=== PATIENT | female | born 1995 | race Caucasian/White ===

== ENCOUNTER 2023-10-05 10:31 | Emergency (ER) | payer OTHER, SELFPAY ==
[2023-10-05 10:41] VITALS: BP 157/90; PULSE 83; RESP 18; TEMP 36.6; O2SAT 100; BMI 43.3
--- NOTE | 2023-10-05 10:56 | ED.WOUNDLAC ---
HPI - Wound/Laceration General Chief Complaint: Wound/Laceration Stated Complaint: post op infection appendectomy Time Seen by Provider: 10/05/23 10:41 Source: patient Mode of arrival: ambulatory Limitations: no limitations History of Present Illness ED Provider: Jeremie Chicas PA-C HPI narrative: 27-year-old female, s/p emergent appendectomy POD#9, presents to the ER due to a rash around her incision sites for the past two days. She remained in the hospital for four hours post-surgery without complications, was discharged home, and had a follow-up on 09/30 which was unremarkable. One week ago (POD#1), she experienced severe pain and returned to [facility] ER where her pain management was changed from oxycodone to dilaudid, providing relief. She had a repeat CT scan that was ok. Two days ago, she developed a tender, itchy, burning like rash around her incision sites. She contacted her surgeon, Dr. Katz, who suspected an allergic reaction to the glue. When she told him that there is yellow, thin drainage, he prescribed keflex twice daily. She has taken two doses with no improvement. She reports a low-grade fever this morning. She denies headache, vision changes, chest pain, palpitations, shortness of breath, nausea, vomiting, diarrhea, abdominal pain, back pain, urinary symptoms, chills, and general malaise. Onset (ago): day(s) Location: abdomen Place: home Patient tetanus UTD: Yes Associated symptoms: other (itching, burning) Treatments prior to arrival: other (keflex) Related Data Previous Rx's ?Medication ?Instructions ?Recorded cephalexin 500 mg capsule 500 mg PO Q6H 7 days #28 caps 10/05/23 doxycycline hyclate 100 mg tablet 100 mg PO BID #14 tabs 10/05/23 Allergies Allergy/AdvReac Type Severity Reaction Status Date / Time nifedipine Allergy Rash Verified 10/05/23 10:43 Review of Systems Constitutional: Constitutional: Reports as per HPI Eyes: Eyes: Reports as per HPI ENT: Reports as per HPI Cardiovascular: Cardiovascular: Reports as per HPI Respiratory: Respiratory: Reports as per HPI Gastrointestinal: Gastrointestinal: Reports as per HPI Genitourinary: Genitourinary: Reports as per HPI Musculoskeletal: Musculoskeletal: Reports as per HPI Integumentary/Breasts: Skin/Breast: Reports as per HPI Neurologic: Reports as per HPI Psychiatric: Psychiatric: Reports as per HPI Endocrine: Endocrine: Reports as per HPI Hematologic/Lymphatic: Hematologic/Lymphatic: Reports as per HPI Allergic/Immunologic: Allergic/Immunologic: Reports as per HPI [facility] Social History Social History Advance Directives: No Advance Directives Information Provided: No Do you have a plan to hurt others: No Plan Physical Exam Vital Signs: Vital Signs: Last Vital Signs Temp 98.2 F 10/05/23 12:20 Pulse 73 10/05/23 12:20 Resp 16 10/05/23 12:20 BP 164/100 H 10/05/23 12:20 Pulse Ox 100 10/05/23 12:20 O2 Del Method Room Air 10/05/23 12:20 BMI result Body Mass Index 43.3 Appearance: Alert. Oriented X3. No acute distress. Head: normocephalic, atraumatic. Eyes: Pupils equal, round and reactive to light. ENT: Pharynx normal. No tonsillar swelling or exudate. Neck: Normal inspection. Neck supple. CVS: Normal heart rate and rhythm. Pulses normal. Respiratory: No respiratory distress. Breath sounds normal. Abdomen: yellow colored crusting and drainage around incision site x1 above umbilicus, localized macular erythema, flat margins not sharply demarcated rash of skin surrounding incision sites x3. Warm and tender to palpation, no fluctuatance or induration No edema or blood at incision sites. All incisions are intact. Abdomen is soft, obese, non-tender, with BSx4. Skin: Skin warm and dry. Normal skin color. Normal skin turgor. No rashes. Extremities: No lower extremity edema. No joint swelling. Neuro/psych: Oriented X 3. No motor deficit. No sensory deficit. CN II-XII intact. Normal speech and cognition. Medications Administered Discontinued Medications Generic Name Dose Route Start Last Admin Trade Name Freq PRN Reason Stop Dose Admin Ceftriaxone Sodium 1 gm/ 50 mls @ 100 mls/hr 10/05/23 10:51 10/05/23 11:49 Sodium Chloride IV 10/05/23 11:20 Infused ONCE ONE Infusion Medical Decision Making Medical Decision Making MDM Narrative: 27-year-old female, s/p emergent appendectomy POD#9, presents to the ER due to a redness around her incision sites for the past two days w/ clear yellow drainage. On arrival, the patient is hemodynamically stable other than elevated BP of 157/90, in no acute distress, non-toxic appearing. On examination, the patient is alert and oriented x3. Abdominal exam portrays yellow colored crusting and drainage around incision site x1 above umbilicus, localized macular erythema, flat margins not sharply demarcated rash surrounding incision sites x3. Warm and tender to palpation, no fluctuance or abscess. No edema or blood at incision sites. All incisions are intact. Abdomen is soft, obese, non-tender, with BSx4. Remaining PE is unremarkable. Labs are unremarkable other than PLT of 417. Brief bedside ultrasound did not portray any abdominal cobblestoning or fluid collection which is reassuring that there is no abscess. Signs and symptoms are most consistent with cellulitis. A dose of ceftriaxone sodium IV given to patient in the ER. Plan is to discharge the patient home, prescribed more keflex and instructed to take antibiotics every 6 hours. Doxycycline added for MRSA coverage. May use warm compress, and Benadryl to help with pruritus. Return precautions were discussed, rash borders are outlined with a marker, recommended to follow up with surgeon. Patient has clear understanding and agrees with plan. Differential Diagnosis Differential Diagnoses: The differential diagnosis associated with the presentation includes cellulitis, contact dermatitis, allergic dermatitis, abscess low suspicion of nectrotizing fasciitis, or thrombophlebitis Lab Data MDM Lab Attestation statement: I reviewed the patient's lab results. no leukocytosis, negative lactic acid 10/05/23 11:15 10/05/23 11:15 Labs: Lab Results 10/05/23 Range/Units 11:15 WBC 8.2 (4.8-10.8) X10*3/uL RBC 4.43 (4.20-5.50) X10*6/uL Hgb 12.8 (12.0-16.0) g/dl Hct 38.1 (37.0-47.0) % MCV 86.0 (80.0-98.0) fL MCH 28.9 (27.0-33.0) pg MCHC 33.6 (31.0-35.0) g/dl RDW 12.2 (11.0-16.0) % Plt Count 417 H (160-400) X10*3/uL MPV 8.9 L (9.4-12.3) fL Immature Gran % (Auto) 0.1 (0.0-0.4) % Neut % (Auto) 71.5 (45-73) % Lymph % (Auto) 17.7 L (20-40) % [place] % (Auto) 5.7 (2-11) % Eos % (Auto) 4.6 H (0-4) % Baso % (Auto) 0.4 (0-2) % Lymph # (Auto) 1.5 (1.2-4.9) X10*3/uL [place] # (Auto) 0.5 (0.1-1.2) X10*3/uL Eos # (Auto) 0.4 (0.0-0.4) X10*3/uL Baso # (Auto) 0.0 (0.0-0.2) X10*3/uL Abs Immat Gran (auto) 0.01 (0.00-0.03) X10*3/uL Absolute Neuts (auto) 5.9 (2.0-8.3) x10*3/uL Absolute Nucleated RBC 0.000 (0.0-0.012) X10*3/uL Nucleated RBC % (auto) 0.0 (0.0-0.2) /100WBC Sodium 138 (135-145) mmol/L Potassium 3.9 (3.3-5.1) mmol/L Chloride 104 (96-108) mmol/L Carbon Dioxide 24 (22-29) mmol/L Anion Gap 14 (12-20) BUN 11 (9-16) mg/dL Creatinine 0.73 (0.5-1.4) mg/dL Estim Creat Clear Calc 156.3 Estimated GFR > 60 Random Glucose 86 (60-115) mg/dL Lactic Acid 0.8 (0.5-2.0) mmol/L Calcium 9.8 (8.4-10.2) mg/dL Magnesium 1.8 (1.6-2.6) mg/dL Total Bilirubin 0.3 (0.0-1.0) mg/dL Direct Bilirubin 0.1 (0.0-0.5) mg/dL AST 14 (5-31) U/L ALT 15 (0-31) U/L Alkaline Phosphatase 89 (39-117) U/L Total Protein 7.4 (6.5-8.0) g/dL Albumin 3.9 (3.5-5.0) g/dL Tests considered The following testing was considered but not selected: formal U/S considered as well as CT abd - not indicated today Prescription Management I considered prescription management with: Pain Medication and Antibiotic Critical Care Time Critical Care Time Critical Care Time: No Discharge Plan Discharge Clinical Impression: Cellulitis Qualifiers: Site of cellulitis: trunk Site of cellulitis of trunk: abdominal wall Qualified Code(s): L03.311 - Cellulitis of abdominal wall Patient Disposition: Home, Self-Care Instructions: Cellulitis (DC), Warm Compress or Soak (ED) Additional Instructions: Your lab workup today was reassuring. No evidence of deep infection. Take the prescribed antibiotics as directed, complete the entire course and do not miss any doses. Started doxycycline today Start the Keflex tomorrow morning. Your given IV form of this today. Use warm compresses to the area. Follow-up with your surgeon as needed. Recommend Benadryl as needed for itching. Take 50 mg every 6-8 hours. If you develop new or worsening symptoms call 911 or come back to the ER for further evaluation. Prescriptions: New doxycycline hyclate 100 mg tablet 100 mg PO BID Qty: 14 0RF cephalexin 500 mg capsule 500 mg PO Q6H 7 Days Qty: 28 0RF Discharge Date/Time: 10/05/23 12:23 Print Language: Romanian
[2023-10-05] MEDS: cefTRIAXone sodium 1 GM in 0.9 % Sodium Chloride 50 ML IV (11:06)
[2023-10-05 11:19] LABS: MANUAL DIFF FLAG NO
[2023-10-05 11:20] LABS: Basophils Percent Auto 0.4 % (0-2); Eosinophils Absolute Auto 0.4 X10*3/uL (0.0-0.4); Eosinophils Percent Auto 4.6 % (0-4); Hematocrit 38.1 % (37.0-47.0); Hemoglobin 12.8 g/dl (12.0-16.0); Imm Gran Abs Auto 0.01 X10*3/uL (0.00-0.03); Imm Gran Pct Auto 0.1 % (0.0-0.4); Lymphocytes Absolute Auto 1.5 X10*3/uL (1.2-4.9); Lymphocytes Percent Auto 17.7 % (20-40); Mean Corpuscular HGB Conc 33.6 g/dl (31.0-35.0); Mean Corpuscular Hemoglobin 28.9 pg (27.0-33.0); Mean Platelet Volume 8.9 fL (9.4-12.3); Monocytes Absolute Auto 0.5 X10*3/uL (0.1-1.2); Monocytes Percent Auto 5.7 % (2-11); Neutrophils Absolute Auto 5.9 x10*3/uL (2.0-8.3); Neutrophils Percent Auto 71.5 % (45-73); Platelet Count 417 X10*3/uL (160-400); Red Blood Count 4.43 X10*6/uL (4.20-5.50); Red Cell Distribution Width 12.2 % (11.0-16.0); White Blood Count 8.2 X10*3/uL (4.8-10.8)
[2023-10-05 11:35] LABS: Lactic Acid 0.8 mmol/L (0.5-2.0)
[2023-10-05 12:20] VITALS: BP 164/100; PULSE 73; RESP 16; TEMP 36.8; O2SAT 100
[2023-10-05 12:21] LABS: Alanine Aminotransferase 15 U/L (0-31); Albumin Level 3.9 g/dL (3.5-5.0); Alkaline Phosphatase 89 U/L (39-117); Anion Gap 14 (12-20); Aspartate Amino Transferase 14 U/L (5-31); Bilirubin Direct 0.1 mg/dL (0.0-0.5); Bilirubin Total 0.3 mg/dL (0.0-1.0); Blood Urea Nitrogen 11 mg/dL (9-16); Calcium 9.8 mg/dL (8.4-10.2); Carbon Dioxide 24 mmol/L (22-29); Chloride 104 mmol/L (96-108); Creatinine Clr Calc Pharmacy 156.3; Estimated Glomerular Filt Rate > 60; Glucose Random 86 mg/dL (60-115); Magnesium 1.8 mg/dL (1.6-2.6); Potassium 3.9 mmol/L (3.3-5.1); Sodium 138 mmol/L (135-145); Total Protein 7.4 g/dL (6.5-8.0)
--- NOTE | 2023-10-05 12:21 | PC.NURSE ---
patient cellulitic area marked by
== END 2023-10-05 12:23 | disposition home or self-care (01) ==
PROVIDERS: Physician Assistant; Emergency Provider Emergency Medicine
DX: L03.311 Cellulitis of abdominal wall (principal); Z79.899 Other long term (current) drug therapy
CPT/HCPCS: 36415; 80048; 80076; 83605; 83735; 85025; 96365; 99284; J0696

== ENCOUNTER 2023-11-21 11:29 | Emergency (ER) | payer OTHER, SELFPAY ==
--- NOTE | ~2023-11-21 | XR_ITS ---
EXAMINATION: XR CHEST CLINICAL INFORMATION: Shortness of breath. COMPARISON: None available. TECHNIQUE: 2 views of the chest were obtained. FINDINGS: The heart is normal in size. The lungs are clear. Pleural spaces are clear. No pneumothorax. No acute osseous abnormality. XR/XR chest 2V IMPRESSION: No acute cardiopulmonary disease. Electronically signed by: Tyler Arguelles DO 11/21/2023 02:58 PM EDT RP
--- NOTE | 2023-11-21 11:34 | ED.GENADULT ---
HPI - General Adult General Chief complaint: Arrhythmia/Palpitations Stated complaint: SOB for 1 hour Time Seen by Provider: 11/21/23 11:34 Source: patient and EMS Mode of arrival: EMS Limitations: no limitations History of Present Illness ED Provider: Damaris Jerry PA-C HPI narrative: Patient is a 28 year old assigned female at with no reported medical history presenting to the emergency department today with palpitations and shortness of breath. Patient states that this morning she had 2 episodes of shortness of breath accompanied by palpitations. Patient denies any current dizziness, lightheadedness, abdominal pain, nausea, vomiting, fever, chills, blurry vision, double vision, loss of vision, chest pain, difficulty breathing, shortness of breath, back pain, night sweats, pain with urination, increased urinary frequency, increased urinary urgency, blood in her urine or stool, syncope or a near syncopal episode, recent trauma or falls, bowel incontinence, bladder incontinence, or any other complaints at this time. Relieving factors: none Exacerbating factors: none Treatments prior to arrival: none Related Data Previous Rx's ?Medication ?Instructions ?Recorded cephalexin 500 mg capsule 500 mg PO Q6H 7 days #28 caps 10/05/23 doxycycline hyclate 100 mg tablet 100 mg PO BID #14 tabs 10/05/23 Allergies Allergy/AdvReac Type Severity Reaction Status Date / Time nifedipine Allergy Rash Verified 11/21/23 11:43 Review of Systems Constitutional: Constitutional: Reports no additional constitutional complaints, Denies chills, Denies fever(s) and Denies night sweats Eyes: Eyes: Reports no additional eye complaints, Denies blurry vision, Denies change in vision, Denies diplopia, Denies eye discharge, Denies loss of vision and Denies eye pain ENT: Denies dizziness Cardiovascular: Cardiovascular: Reports no additional cardiovascular complaints, Denies chest pain, Denies lightheadedness, Denies Loss of Consciousness, Reports palpitations (now resolved) and Reports dyspnea (now resolved) Respiratory: Respiratory: Reports no additional respiratory complaints and Reports dyspnea (now resolved) Gastrointestinal: Gastrointestinal: Reports no additional gastrointestinal complaints, Denies abdominal pain, Denies melena, Denies hematochezia, Denies change in bowel habits and Denies change in stool character Genitourinary: Genitourinary: Denies hematuria, Denies urinary frequency, Denies dysuria, Denies urinary incontinence, Denies urinary hesitancy and Denies urinary urgency Musculoskeletal: Musculoskeletal: Reports no additional musculoskeletal complaints, Denies numbness and Denies tingling Neurologic: Denies dizziness, Denies loss of vision, Denies numbness and Denies tingling Psychiatric: Psychiatric: Reports no additional psychiatric complaints Endocrine: Endocrine: Reports no additional endocrine complaints and Reports palpitations (now resolved) Hematologic/Lymphatic: Hematologic/Lymphatic: Reports no additional hematologic/lymphatic complaints Allergic/Immunologic: Allergic/Immunologic: Reports no additional allergic/immunologic complaints [facility] Past Medical History Attestation statement: The following information was validated with the patient. Source: old records reviewed and nursing notes reviewed Social History Social History Smoked in Last 30 Days: No Use of substances other than those prescribed or required for medical reasons: No Advance Directives: No Advance Directives Information Provided: No Do you have a plan to hurt others: No Plan Physical Exam ED Vital Signs: Vital Signs - 24 hr 11/21/23 11:42 11/21/23 13:11 Temperature 97.3 F 97.3 F Pulse Rate 75 75 Respiratory Rate 16 16 Blood Pressure 157/94 H 157/94 H Pulse Oximetry 100 100 Oxygen Delivery Method Room Air Room Air BMI result Body Mass Index 42.3 Const General: cooperative, no acute distress, alert and awake Nutritional Appearance: well nourished Orientation/consciousness: patient oriented x3 Limitations: no limitations HENMT Head: Yes normal to inspection and Yes atraumatic Ears: hearing grossly normal bilaterally and external ears normal General nose exam: Normal external nose present, no nasal discharge noted and no epistaxis Face and sinus: Yes normal facial exam, No abrasion and No laceration Mouth: Normal oral and palatal mucosa present, no drooling and no muffled voice Eyes General: appearance normal, both eyes and all related structures Periorbital: periorbital findings normal Eyelids: Yes eyelids normal Conjunctivae: conjunctivae normal Pupils: Equal, round and reactive pupils present EOM: EOMs intact bilaterally Neck Neck: Yes normal visual inspection, Yes full ROM and Yes no lymphadenopathy Chest Chest palpation & inspection: normal inspection of the chest Resp Effort & Inspection: normal respiratory effort and able to speak in complete sentences GI Inspection: Yes normal to inspection Neuro General: patient oriented x3 and moves all extremities Cranial nerves: Yes Equal, round and reactive pupils present Cognition (Neuro): normal cognition Extrem General: Yes normal to inspection, Yes full ROM and Yes capillary refill normal Psych Appearance: grossly normal Mental Status: mental status grossly normal Affect: normal affect Attitude: cooperative Thought process: Normal thought process present Thought content: Normal thought content present Insight: Good insight present (Psych) Medical Decision Making Medical Decision Making [facility] Narrative: Patient is a 28 year old assigned female at with no reported medical history presenting to the emergency department today with 2 episodes of shortness of breath and palpitations. Patient's physical exam was unremarkable. Patient's blood work was unremarkable. Patient's urine showed no acute process. Patient's EKG was unremarkable. Patient's chest x-ray showed no acute process. I explained my physical exam findings as well as all test results to the patient. I answered all questions asked by the patient. I stressed the importance of the patient taking her medication as directed (either prescribed or as the over the counter packaging recommends). I stressed the importance of the patient following up with her primary care provider and if her symptoms persist, a inspector open die. I stressed the importance of the patient returning to the emergency department immediately if her symptoms were to worsen or if she were to develop any dizziness, shortness of breath, difficulty breathing, chest pain, blurry vision, loss of vision, nausea, vomiting, abdominal pain, fever, chills, back pain, or any other complaints. Patient verbalized agreement and understanding with this treatment plan and discharge. Differential Diagnosis Differential Diagnoses: The differential diagnosis associated with the presentation includes Atypical chest pain Palpations Anxiety POTS STEMI NSTEMI Admission/Observation Consideration of admission/observation: Escalation of care including admission/observation considered Patient would have been admitted to the hospital had her work up had any findings where hospital admission was appropriate and her clinical presentation warranted hospital admission. Lab Data [facility] Lab Attestation statement: I reviewed the patient's lab results. My interpretation of these results are in the [facility] Rationale portion of this note. 11/21/23 12:05 11/21/23 12:05 Labs: Lab Results 11/21/23 11/21/23 11/21/23 Range/Units 11:43 12:05 12:07 WBC 6.1 (4.8-10.8) X10*3/uL RBC 4.37 (4.20-5.50) X10*6/uL Hgb 12.6 (12.0-16.0) g/dl Hct 38.2 (37.0-47.0) % MCV 87.4 (80.0-98.0) fL MCH 28.8 (27.0-33.0) pg MCHC 33.0 (31.0-35.0) g/dl RDW 12.1 (11.0-16.0) % Plt Count 408 H (160-400) X10*3/uL MPV 9.2 L (9.4-12.3) fL Immature Gran % (Auto) 0.2 (0.0-0.4) % Neut % (Auto) 57.2 (45-73) % Lymph % (Auto) 30.0 (20-40) % [place] % (Auto) 7.2 (2-11) % Eos % (Auto) 4.6 H (0-4) % Baso % (Auto) 0.8 (0-2) % Lymph # (Auto) 1.8 (1.2-4.9) X10*3/uL [place] # (Auto) 0.4 (0.1-1.2) X10*3/uL Eos # (Auto) 0.3 (0.0-0.4) X10*3/uL Baso # (Auto) 0.1 (0.0-0.2) X10*3/uL Abs Immat Gran (auto) 0.01 (0.00-0.03) X10*3/uL Absolute Neuts (auto) 3.5 (2.0-8.3) x10*3/uL Absolute Nucleated RBC 0.000 (0.0-0.012) X10*3/uL Nucleated RBC % (auto) 0.0 (0.0-0.2) /100WBC PT 11.5 (11.1-13.3) SEC INR 0.9 (0.9-1.1) APTT 29.2 (26.0-36.8) SEC D-Dimer High Sensitivty < 150 NG/ML Sodium 138 (135-145) mmol/L Potassium 4.1 (3.3-5.1) mmol/L Chloride 108 (96-108) mmol/L Carbon Dioxide 22 (22-29) mmol/L Anion Gap 12 (12-20) BUN 11 (9-16) mg/dL Creatinine 0.73 (0.5-1.4) mg/dL Estim Creat Clear Calc 152.8 Estimated GFR > 60 POC Glucose 70 (60-115) mg/dL Random Glucose 75 (60-115) mg/dL Calcium 8.9 D (8.4-10.2) mg/dL Magnesium 1.9 (1.6-2.6) mg/dL Total Bilirubin 0.2 (0.0-1.0) mg/dL AST 19 (5-31) U/L ALT 17 (0-31) U/L Alkaline Phosphatase 94 (39-117) U/L Troponin I High Sens < 2.7 (<3.5-17.0) ng/L Total Protein 7.3 (6.5-8.0) g/dL Albumin 3.8 (3.5-5.0) g/dL Beta HCG, Quant < 2 mIU/mL Urine Color Yellow Urine Appearance Cloudy Urine pH 6.5 (5.0-9.0) Ur Specific [place] 1.015 (1.005-1.025) Urine Protein Negative (Neg-Trace) mg/dL Urine Glucose (UA) Negative (Negative) mg/dL Urine Ketones Trace (Negative) mg/dL Urine Blood Small (1+) H (Negative) Urine Nitrite Negative (Negative) Ur Leukocyte Esterase Negative (Negative) Urine RBC 0-2 (0-2) /HPF Urine WBC 0-5 (0-5) /HPF Ur Squamous Epith Cells 6-10 (0-2) /HPF Urine Bacteria None Seen (None Seen) Hyaline Casts 0-2 (0-2) /LPF Influenza Type A (PCR) NEGATIVE (Negative) Influenza Type B (PCR) NEGATIVE (Negative) RSV RNA Qual (PCR) NEGATIVE (Negative) SARS-CoV-2 RNA (RT-PCR) NEGATIVE (Negative) Independent Interpretation I performed an independent interpretation of an: EKG and Plain X-Ray Interpretation: My interpretation is in agreement with the radiologist's impression of this imaging study. EXAMINATION: XR CHEST CLINICAL INFORMATION: Shortness of breath. COMPARISON: None available. TECHNIQUE: 2 views of the chest were obtained. FINDINGS: The heart is normal in size. The lungs are clear. Pleural spaces are clear. No pneumothorax. No acute osseous abnormality. XR/XR chest 2V IMPRESSION: No acute cardiopulmonary disease. Electronically signed by: Tyler Arguelles DO 11/21/2023 02:58 PM EDT RP Dictated By: Tyler Arguelles Jr, DO Signed By: Electronically signed by Tyler Arguelles Jr, DO 11/21/23 1458 Vent. Rate: 076 BPM Atrial Rate: 076 BPM P-R Int: 162 ms QRS Dur: 084 ms QT Int: 396 ms P-R-T Axes: 035 007 104 degrees QTc Int: 445 ms Normal sinus rhythm T wave abnormality, consider lateral ischemia Abnormal ECG No previous ECGs available Referred By: Damaris Jerry Electronically Signed By:NICOLAS GREENFIELD Dictated By: Nicolas Freitas DO Signed By: Electronically signed by Nicolas Freitas DO 11/21/23 6069 Radiology Impression Discussion of test interpretation with radiology: I have reviewed the radiologist's reading. Discharge Plan Discharge Clinical Impression: Palpitations Patient Disposition: Home, Self-Care Instructions: Heart Palpitations (DC) Additional Instructions: Follow up with your primary care provider and if your symptoms continue - follow up with a inspector open die. Return to the emergency department immediately if your symptoms worsen or if you develop any dizziness, shortness of breath, difficulty breathing, chest pain, blurry vision, loss of vision, nausea, vomiting, abdominal pain, fever, chills, back pain, or any other complaints. Prescriptions: No Action doxycycline hyclate 100 mg tablet 100 mg PO BID Qty: 14 0RF cephalexin 500 mg capsule 500 mg PO Q6H 7 Days Qty: 28 0RF Referrals: [facility] Cardiovascular Specialists [Provider Group] (Call to establish and follow up with a inspector open die if the symptoms were to persist. ) [facility] Family Medicine [Provider Group] (Call to establish and follow up with a primary care provider. If you already have a primary care provider, please follow up with them.) [facility] Primary CareMaría Elena [Provider Group] (Call to establish and follow up with a primary care provider. If you already have a primary care provider, please follow up with them.) [facility] Primary Care,Marcus [Provider Group] (Call to establish and follow up with a primary care provider. If you already have a primary care provider, please follow up with them.) Interventions: ED Discharge Assessment Last Done: 11/21/23 13:11 Discharge Date/Time: 11/21/23 13:12 Print Language: Uruguayan
--- NOTE | 2023-11-21 11:35 | ECG_ITS ---
Test Reason : sob Blood Pressure : / mmHG Vent. Rate : 076 BPM Atrial Rate : 076 BPM P-R Int : 162 ms QRS Dur : 084 ms QT Int : 396 ms P-R-T Axes : 035 007 104 degrees QTc Int : 445 ms Normal sinus rhythm T wave abnormality, consider lateral ischemia Abnormal ECG No previous ECGs available Referred By: Damaris Jerry Electronically Signed By:NICOLAS GREENFIELD
[2023-11-21 11:37] VITALS: BP 119/89; PULSE 96; O2SAT 100
[2023-11-21 11:42] VITALS: BP 157/94; PULSE 75; RESP 16; TEMP 36.3; O2SAT 100; BMI 42.3
--- NOTE | 2023-11-21 11:45 | PC.NURSE ---
pt MIKE from home - per pt she was watching tv with her kids when she started feeling like her heart was pounding she felt it through her whole body pt reports she started feeling SOB with this and felt foggy . pt reports hx of HTN and previously being on Labetalol but she was taken off the med at her 6 week post appointment and she does not know why
[2023-11-21 11:47] LABS: Glucose, Whole Blood 70 mg/dL (60-115)
[2023-11-21 12:13] LABS: MANUAL DIFF FLAG NO
[2023-11-21 12:15] LABS: Basophils Absolute Auto 0.1 X10*3/uL (0.0-0.2); Basophils Percent Auto 0.8 % (0-2); Eosinophils Absolute Auto 0.3 X10*3/uL (0.0-0.4); Eosinophils Percent Auto 4.6 % (0-4); Hematocrit 38.2 % (37.0-47.0); Hemoglobin 12.6 g/dl (12.0-16.0); Imm Gran Abs Auto 0.01 X10*3/uL (0.00-0.03); Imm Gran Pct Auto 0.2 % (0.0-0.4); Lymphocytes Absolute Auto 1.8 X10*3/uL (1.2-4.9); Mean Corpuscular Hemoglobin 28.8 pg (27.0-33.0); Mean Corpuscular Volume 87.4 fL (80.0-98.0); Mean Platelet Volume 9.2 fL (9.4-12.3); Monocytes Absolute Auto 0.4 X10*3/uL (0.1-1.2); Monocytes Percent Auto 7.2 % (2-11); Neutrophils Absolute Auto 3.5 x10*3/uL (2.0-8.3); Neutrophils Percent Auto 57.2 % (45-73); Platelet Count 408 X10*3/uL (160-400); Red Blood Count 4.37 X10*6/uL (4.20-5.50); Red Cell Distribution Width 12.1 % (11.0-16.0); White Blood Count 6.1 X10*3/uL (4.8-10.8)
[2023-11-21 12:16] LABS: Appearance Urine Cloudy; Color Urine Yellow; Glucose Urine UA Negative (Negative); Leukocyte Esterase Urine Negative (Negative); Nitrite Urine Negative (Negative); PH 6.5 (5.0-9.0); Specific Gravity - Urine 1.015 (1.005-1.025); UMIC TRIGGER UACC YES; Urine Blood Small (1+) (Negative); Urine Ketones Trace mg/dL (Negative); Urine Protein Negative (Neg-Trace)
[2023-11-21 12:26] LABS: INTERNATIONAL NORM RATIO 0.9 (0.9-1.1); Prothrombin Time 11.5 SEC (11.1-13.3)
[2023-11-21 12:26] LABS: Bacteria Urine None Seen (None Seen); Hyaline Casts Urine 0-2 /LPF (0-2); RBC Urine 0-2 /HPF (0-2); WBC Urine 0-5 /HPF (0-5)
[2023-11-21 12:28] LABS: Partial Thromboplastin Time 29.2 SEC (26.0-36.8)
[2023-11-21 12:35] LABS: D Dimer High Sensitivity < 150 NG/ML
[2023-11-21 12:37] LABS: Alanine Aminotransferase 17 U/L (0-31); Albumin Level 3.8 g/dL (3.5-5.0); Alkaline Phosphatase 94 U/L (39-117); Anion Gap 12 (12-20); Aspartate Amino Transferase 19 U/L (5-31); Bilirubin Total 0.2 mg/dL (0.0-1.0); Blood Urea Nitrogen 11 mg/dL (9-16); Calcium 8.9 mg/dL (8.4-10.2); Carbon Dioxide 22 mmol/L (22-29); Chloride 108 mmol/L (96-108); Creatinine Clr Calc Pharmacy 152.8; Estimated Glomerular Filt Rate > 60; Glucose Random 75 mg/dL (60-115); HCG Quantitative < 2 mIU/mL; Magnesium 1.9 mg/dL (1.6-2.6); Potassium 4.1 mmol/L (3.3-5.1); Sodium 138 mmol/L (135-145); Total Protein 7.3 g/dL (6.5-8.0); Troponin-I High Sensitivity < 2.7 ng/L (<3.5-17.0)
[2023-11-21 13:06] LABS: Influenza A PCR NEGATIVE (Negative); Influenza B PCR NEGATIVE (Negative); Resp Syncy Virus RNA Qual PCR NEGATIVE (Negative); SARS COV2 PCR INHOUSE NEGATIVE (Negative)
[2023-11-21 13:11] VITALS: BP 157/94; PULSE 75; RESP 16; TEMP 36.3; O2SAT 100
== END 2023-11-21 13:12 | disposition home or self-care (01) ==
PROVIDERS: Physician Assistant Medical; Emergency Provider Emergency Medicine Emergency Medical Services
DX: R00.2 Palpitations (principal); R06.02 Shortness of breath; Z03.818 Encounter for observation for suspected exposure to other biological agents ruled out
CPT/HCPCS: 0241U; 36415; 71046; 80053; 81001; 82947; 83735; 84484; 84702; 85025; 85379; 85610; 85730; 93005; 99283; 99284

== ENCOUNTER 2024-06-07 09:14 | Emergency (ER) | payer OTHER, SELFPAY ==
--- NOTE | 2024-06-07 09:17 | ECG_ITS ---
Test Reason : cp Blood Pressure : */* mmHG Vent. Rate : 96 BPM Atrial Rate : 96 BPM P-R Int : 158 ms QRS Dur : 82 ms QT Int : 336 ms P-R-T Axes : 36 3 113 degrees QTcB Int : 424 ms Normal sinus rhythm ST & T wave abnormality, consider lateral ischemia Abnormal ECG When compared with ECG of 21-Nov-2023 12:10, No significant change was found Referred By: Holli Martin Electronically Signed By: AAKASH QUESADA MD
[2024-06-07 10:16] VITALS: BP 139/82; PULSE 78; RESP 16; TEMP 36.6; O2SAT 100; BMI 42.6
== END 2024-06-07 13:25 | disposition left against medical advice (07) ==
PROVIDERS: Emergency Provider Emergency Medicine Emergency Medical Services
DX: R07.89 Other chest pain (principal); R06.02 Shortness of breath
CPT/HCPCS: 93005; 99281; 99283

== ENCOUNTER → 2024-06-07 09:17 | Outpatient (BNV) | payer OTHER, SELFPAY | PROVIDERS: Visit Provider Internal Medicine Cardiovascular Disease | DX: R94.31 Abnormal electrocardiogram [ECG] [EKG] (principal); R07.9 Chest pain, unspecified | CPT/HCPCS: 93010 ==

== ENCOUNTER 2025-01-11 11:13 | Emergency (ER) | payer OTHER, SELFPAY ==
--- NOTE | ~2025-01-11 | XR_ITS ---
EXAMINATION: XR FOOT, RIGHT CLINICAL INFORMATION: right big toe injury. fracture? COMPARISON: None available. TECHNIQUE: AP, lateral, and oblique views of the right foot. FINDINGS: There is a small plantar calcaneal spur. No degenerative changes are noted. No fracture lines are evident. There is no joint diastases or malalignment. XR/XR foot RT min 3V IMPRESSION: Unremarkable right foot x-ray Electronically signed by: Gabe Lucero MD 01/11/2025 11:47 AM EDT
[2025-01-11 11:16] VITALS: PULSE 59; RESP 18; TEMP 36.8; O2SAT 100; BMI 44.4
[2025-01-11 11:21] VITALS: BP 140/82
--- NOTE | 2025-01-11 11:22 | ED.GENADULT ---
HPI - General Adult General Chief complaint: Extremity Injury, Lower Stated complaint: High Blood Pressure Time Seen by Provider: 01/11/25 11:54 Source: patient Mode of arrival: ambulatory Limitations: no limitations History of Present Illness ED Provider: Papi Yañez HPI narrative: 29 yold female presents to the ED for right pinky toe pain since Friday. Patient states this past Friday she mig tig welder her right pinky toe on a door which caused nail avulsion. Patient states than she went to urgent care and they glued the nail back. patient states slight redness around toe. patient states she never had xray. Related Data Previous Rx's ?Medication ?Instructions ?Recorded cephalexin 500 mg capsule 500 mg PO Q6H 7 days #28 caps 10/05/23 doxycycline hyclate 100 mg tablet 100 mg PO BID #14 tabs 10/05/23 cephalexin 500 mg capsule 500 mg PO QID 7 days #28 caps 01/11/25 naproxen 500 mg tablet 500 mg PO BID PRN pain #14 tabs 01/11/25 Allergies Allergy/AdvReac Type Severity Reaction Status Date / Time nifedipine Allergy Rash Verified 01/11/25 11:17 Review of Systems Review of Systems: right pinky toe Yes all other systems are reviewed and are negative [facility] Social History Social History Advance Directives: No Advance Directives Information Provided: No Do you have a plan to hurt others: No Plan Physical Exam ED Vital Signs: Vital Signs - 24 hr 01/11/25 11:16 01/11/25 11:21 Temperature 98.2 F Pulse Rate 59 Respiratory Rate 18 Blood Pressure 140/82 H Pulse Oximetry 100 Oxygen Delivery Method Room Air BMI result Body Mass Index 44.4 Const General: cooperative, healthy appearing, comfortable, no acute distress, well developed, alert, awake and Physically active Orientation/consciousness: patient oriented x3 HENMT Head: Yes normal to inspection, Yes No palpable skull fracture present, Yes normocephalic and Yes atraumatic Eyes General: appearance normal, both eyes and all related structures Neck Neck: Yes normal visual inspection, Yes full ROM, Yes no lymphadenopathy, Yes no meningeal signs, Yes trachea midline, Yes supple, No anterior neck swelling and No tender Chest Chest palpation & inspection: normal inspection of the chest and normal palpation of entire chest wall Resp Effort & Inspection: normal respiratory effort and able to speak in complete sentences Auscultation: clear to auscultation bilaterally Cardio Jugular venous distension: no JVD Heart sounds: S1 normal heart sound present and S2 normal heart sound present GI Inspection: Yes normal to inspection Palpation (GI): Soft to palpation, not firm, nontender, no guarding and not rigid General: Yes no CVA tenderness Back/Spine/Pelvis Back: no CVA tenderness and No back tenderness Skin General skin exam: no rashes or lesions noted, elasticity normal and turgor normal Neuro General: patient oriented x3, gait normal, tone normal, moves all extremities, Normal light touch and pain sensation, no meningeal signs, no focal motor deficits and CN's II-XI intact bilaterally Extrem General: Yes normal to inspection, Yes full ROM and Yes capillary refill normal Ankle/foot/toe images:  1. positive for slight erythema. negative for pus discharge, foul odor, or bluish/blackness. rest of extremity is normal. motor, neuro, and vascular exam is intact. 2. partial nail avulsion that is glued by urgent care. dried blood. rest of extremity is normal. motor, neuro, and vascular exam is intact. Psych Appearance: grossly normal, well kempt and not disheveled Course Course Course Narrative: RmE: 29 yold female presents to the ED for right pinky toe pain since friday. Patient state nail was coming off and was glued back by urgent care. Patient states still painful and oozing blood. Xrays ordered. Medical Decision Making Medical Decision Making MDM Narrative: 29 yold female presents to the ED for right pinky toe pain after hitting hitoe agaisnt door with partial nail avulsion on Friday. patient went to an urgent care that glued the nail down. patient states slight oozing. Patient states also mild redness around toe. Xrray of foot negative for fracutre. mild erythema around toe. no pus drainage or foul odor. no fever or chills. Patient will be discharged with antbiotics and follow up with finger waver. no need for nail avulsion removal. Not suspecting osteomyelitits, arterial occlussion, compartment syndrome, lymphangitits, necrotizing fascitits, or any other life threatening etiology. Differential Diagnosis Differential Diagnoses: The differential diagnosis associated with the presentation includes (fracture, cellulits, sprain) Admission/Observation Consideration of admission/observation: Escalation of care including admission/observation considered Independent Interpretation I performed an independent interpretation of an: Plain X-Ray Radiology Impression Discussion of test interpretation with radiology: I have reviewed the radiologist's reading. Independent Historian Clinical information obtained from an independent historian. History obtained from or confirmed by: Other (patient) Prescription Management I considered prescription management with: Pain Medication and Antibiotic Discharge Plan Discharge Clinical Impression: Contusion of fifth toe, Acute cellulitis, Nail avulsion of toe Patient Disposition: Home, Self-Care Instructions: Cellulitis (ED), Contusion in Adults (ED), Nail Avulsion (ED) Additional Instructions: You will need follow-up with finger waver or primary care provider. Return to the ED immediately for any swelling, redness, pus discharge, foul odor, fever, chills, or any other concerning symptoms. X-ray negative for fracture. Prescriptions: New cephalexin 500 mg capsule 500 mg PO QID 7 Days Qty: 28 0RF naproxen 500 mg tablet 500 mg PO BID PRN (Reason: pain) Qty: 14 0RF No Action doxycycline hyclate 100 mg tablet 100 mg PO BID Qty: 14 0RF cephalexin 500 mg capsule 500 mg PO Q6H 7 Days Qty: 28 0RF Referrals: [facility] [place] Group, Podiatry] - 2 days Referral Note: Partial nail avulsion, contusion, cellulitis Clinical Impression: Contusion of fifth toe; Acute cellulitis; Nail avulsion of toe Stand Alone Forms: Work/School Release Interventions: ED Discharge Assessment Last Done: 01/11/25 12:54 Discharge Date/Time: 01/11/25 13:00 Print Language: Anguillan
[2025-01-11 12:54] VITALS: BP 140/82; PULSE 59; RESP 16; TEMP 36.9; O2SAT 98
--- OUTSIDE RECORDS SUMMARY | 2025-01-11 16:20 | XMS_ITS | Clinical Summary ---
Author Organization Patient Business Ser [facility] Address [address] [place] [address] Care Team Providers Care Director Behavioral Health Name Role Phone Melissa Sarabia MD Primary Care Prov ider Allergies Active Allergy Reactions Criticality Noted Date Comments Nifedipine 12/31/2022 Other Reaction(s): Flushing, feeling of warmth Face flushed, red hands and feet- tingling of extremities Medications metoprolol succinate (TOPROL-XL) 50 mg 24 hr tablet Take 1 tablet (50 mg total) by mouth 1 (one) time each day. Do not crush or chew. 90 each 3 09/21/2024 Active Active Problems Problem Noted Date Diagnosed Date NSVT (nonsustained ventricul ar tachycardia) ([facility] V24, [facility] V28) 09/21/2024 Shortness of breath 09/21/2024 Abnormal Holter exam 06/30/2024 Overview (06/30/2024): VENTRICULAR TACHYCARDIA Morbid obesity with BMI of 4 0.0-44.9, adult ([facility] V24, [facility] V28) 03/02/2024 Vitamin D insufficiency 11/27/2023 Chronic hypertension in 07/02/2022 Overview (03/02/2024): Baseline (<20 weeks) CBC, AST, ALT, creatinine labs and P/C ratio - 07/02/2022 normal protein cr ratio 0.05 Start ASA 162 mg at 12 weeks until delivery for pre-eclampsia prevention - taking Level 2 anatomy US - normal Q 4 week growth US starting at 28 weeks - ordered Weekly NST with BP and urine protein dip at 32 weeks Twice weekly testing at 36 weeks Start meds for SBP> 160 or DBP> 110 Deliver 38-39 weeks on no meds Deliver 37-39 weeks on meds Last Assessment & Plan: BP elevated x2 today. Patient asymptomatic for preeclampsia but generally does not feel well. PIH labs ordered. Continue ASA> RTO tomorrow for repeat BP check. Discussed if BP persistently elevated will need to start medications and plan for 37 week IOL. Continue twice weekly NSTs until delivery. NST reactive today. Growth US scheduled 12/19/22. Herpes simplex vulvovaginitis 10/30/2021 Overview (03/02/2024): Last Assessment & Plan: Rx given for Valtrex to start now given will deliver earlier than 40 weeks Muscle hypertonicity 06/15/2020 Overview (03/02/2024): Last Assessment & Plan: Performed pelvic OMT due to hypertonicity of adductor muscles. Instructed patient on stretching techniques. Gallstones 03/09/2020 Overview (03/02/2024): S/p lap renetta 03/16/20 Last Assessment & Plan: Symptoms resolved with lap renetta, feeling well today. Childhood asthma 02/15/2020 Other constipation 02/15/2020 Overview (03/02/2024): Last Assessment & Plan: Encouraged increased PO intake and high fiber diet. Rx for colace given. Maternal varicella, non-immune 02/11/2020 Overview (03/02/2024): Vaccinate Last Assessment & Plan: Vaccinate Encounters Date Type Department Care Team Description 10/26/2024 Telephone Adult Medicine [address] [phone] Melissa Sarabia MD from Last 3 Months Immunizations Immunization Administration Dates Next Due Influenza Quadravalent, MDCK , 0.5ml, preservative free (Flucelvax) 6mo and older 01/26/2021,12/22/2019 Influenza trivalent, 0.5mL, preservative free (Fluarix; FluLaval; Fluzone) ages 6mo and older (Afluria) 3 years and older 12/27/2017,03/27/2016,01/13/2015,2013,12/16/2011 Influenza, Unspecified 12/21/2019 Tdap Tetanus diptheria acell ular pertussis (Boostrix; Adacel) 7yo and older 10/22/2022,06/15/2020,07/05/2019,2015,12/31/2015 Varicella live (Varivax) 12m o and older 08/19/2020 Surgical History Surgery Date Site/Laterality Comments OTHER SURGICAL HISTORY PROCEDURE: HISTORICAL D&C; COMMENT: x 2 CHOLECYSTECTOMY 03/16/2020 PROCEDURE: LAPAROSCOPIC CHOLECYSTECT WISDOM TOOTH EXTRACTION 2017 PROCEDURE: HISTORICAL WISDOM TEETH EXTRACTION; COMMENT: all 4 removed Medical History Medical History Date Comments Skin lesions 07/19/2015 DX:Skin lesions; COMMENT: ulcerative, 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 Vaginal discharge 08/07/2022 DX:Vaginal dis charge Hyperemesis gravidarum 05/24/2022 DX:Hypere mesis gravidarum; COMMENT: 06/12- B6 QID, [facility] at [facility] Added Phenergan suppositories today Zofran PRN Family History Medical History Relation Name Comments No Known Problems Father no contact , drug user Diabetes Maternal Grandfather lost to p half of rt foot, in sleep CABG Maternal Grandmother Hypertension Mother asthma, depress ion Lung cancer Paternal Grandfather Glaucoma Paternal Grandmother Drug abuse Sister 1 heroin overdose Other: Other Sister 2 scoliosis No Known Problems Son 1 No Known Problems Son 2 No Known Problems Son 3 No Known Problems Son 4 Breast cancer Neg Hx Cervical cancer Neg Hx Ovarian cancer Neg Hx Uterine cancer Neg Hx Relation Name Status Comments Father Alive Maternal Grandfather Maternal Grandmother Alive Mother Alive Paternal Grandfather Alive Paternal Grandmother Alive Sister 1 Sister 2 Alive Son 1 Alive Son 2 Alive Son 3 Alive Son 4 Alive Social History Tobacco Use Types Packs/Day Years Used Date Smoking Tobacco: Former Cigarettes Q uit: 05/16/2011 Smokeless Tobacco: Never Tobacco Cessation:Counseling Given: Not Answered Alcohol Use Standard Drinks/Week Comments No 0 (1 standard drink = 0.6 oz pur e alcohol) Housing Instability Answer Date Recorde d Are you worried that in the next 2 months you may not have stable housing? No 06/10/2024 Food Access & Nutrition Answer Date Rec orded Do you have access to a vari ety of food including fruits and vegetables? Yes 06/10/2024 Access to Healthcare Answer Date Record ed Within the last 3 months, ho w many times did you visit the emergency department for your medical care? 1 06/10/2024 Health Literacy Answer Date Recorded How often do you need to hav e someone help you when you read instructions, pamphlets, or other written material from your doctor or pharmacy? Never 06/10/2024 Caregiver: How often do you need to have someone help you when you read instructions, pamphlets, or other written material from your doctor or pharmacy? Not on file 06/10/2024 Financial Risk Answer Date Recorded How hard is it for you to pa y for the very basics like food, housing, medical care, and air conditioning / heating? Not very hard 06/10/2024 Transportation Answer Date Recorded Has the lack of transportati on kept you from meetings, work, or from getting things needed for daily living? No Has the lack of transportati on kept you from medical appointments or from getting medications? No 06/10/2024 Social Isolation Answer Date Recorded How often do you feel lonely or isolated from th ose around you? Never 06/10/2024 Food Risk Answer Date Recorded Within the past 12 months we worried whether our food would run out before we got money to buy more. Never true 06/10/2024 Within the past 12 months th e food we bought just didn't last and we didn't have money to get more. Never true 06/10/2024 Dependent Care Answer Date Recorded Do you need help finding or paying for care for your loved ones. For example, child adolescent psychiatrist or elderly care for an older adult? No 06/10/2024 Education Answer Date Recorded Do you think completing more education or training, like finishing a GED, going to college, or learning a trade, would be helpful for you? No 06/10/2024 Employment and Income Answer Date Recor ded During the last four weeks, have you been actively looking for work? No 06/10/2024 Living Situation Answer Date Recorded What is your living situation? Unrecognized valu e 06/10/2024 Comments No Sex and Gender Information Value Date Recorded Sex Assigned at Not on file Legal Sex Female 12:16 PM EST Gender Identity Not on file Sexual Orientation Not on file Obstetrics History Last Filed Vital Signs Vital Sign Reading Time Taken Comments Blood Pressure 132/82 09/21/2024 10:24 AM EDT Pulse 69 09/21/2024 10:24 AM EDT Temperature 36.4 C (97.5 F) 07/09/2024 9:37 AM EDT Respiratory Rate 16 07/09/2024 9:37 AM EDT Oxygen Saturation 99% 09/21/2024 10:24 AM EDT Inhaled Oxygen Concentration - - Weight 127 kg (279 lb) 09/21/2024 10:24 AM EDT Height 170.2 cm (5' 7 ) 09/21/2024 10:24 AM EDT Body Mass Index 43.7 09/21/2024 10:24 AM EDT Plan of Treatment Upcoming Encounters Date Type Department Care Team (Late st Contact Info) Description 01/12/2025 11:00 AM EDT Office Visit Adult Medicine [facility] [address] [place] [address] Ynes Cagle PA [address] [place], [place] 09/21/2025 10:00 AM EDT Ancillary Procedure [facility] [address] [place] [address] Health Maintenance Due Date Last Done Comments Hepatitis B Vaccines (1 of 3 - 19+ 3-dose series) 2012 Pneumococcal Vaccine: Pediatrics (0 to 5 Years) and At-Risk Patients (6 to 49 Years) (1 of 2 - PCV) 2012 HIV Screening 02/24/2020 HPV Vaccines (1 - 3-dose SCDM series) 2020 Depression Screening 03/17/2024 11/27/2023 COVID-19 Vaccine (3 - season) 2024 02/23/2021, 02/02/2021 Social Influencers of Health Screening 06/10/2025 06/10/2024 Hypertension/CHF/CAD Annual BMP Blood Test 07/28/2025 07/28/2024, 06/10/2024, 06/27/2022 Cholesterol Screening (Lipid Panel) 01/26/2026 01/26/2021 Cervical Cancer Screening: HPV 07/03/2027 07/02/2022 DTaP,Tdap,and Td Vaccines (6 - Td or Tdap) 10/22/2032 10/22/2022, 06/15/2020, 07/05/2019, Additional history exists RSV Immunization Adult Patients (1 - 1-dose 75+ series) 2068 Varicella Vaccines Aged Out 08/19/2020 No longer eligible based on patient's age to complete this topic Influenza Vaccine Discontinued 01/26/2021, , 12/21/2019, Additional history exists Hepatitis C Screening Completed 06/27/2022 HIB Vaccines Aged Out No longer eligi ble based on patient's age to complete this topic Hepatitis A Vaccines Aged Out No long er eligible based on patient's age to complete this topic IPV Vaccines Aged Out No longer eligi ble based on patient's age to complete this topic MMR Vaccines Aged Out No longer eligi ble based on patient's age to complete this topic Meningococcal ACWY Vaccine Aged Out N o longer eligible based on patient's age to complete this topic Meningococcal B Vaccine Aged Out No l onger eligible based on patient's age to complete this topic RSV Immunization Patients Under 20 months Aged Out No longer eligible based on patient's age to complete this topic Procedures Procedure Name Priority Date/Time Associated Diagnosis Comments BASIC METABOLIC PANEL Routine 07/28/2024 9:47 AM EDT Ventricular tachycardia (CMS/HCC V24, CMS/HCC V28) DEPRESSION SCREENING Routine 11/27/2023 HPV Routine 07/02/2022 HEPATITIS C SCREENING Routine 06/27/2022 LIPID PANEL Routine 01/26/2021 from Last 3 Months or Most Recently Relevant to Health Maintenance Results * Basic metabolic panel (07/28/2024 9:47 AM EDT) Sodium 135 133 - 145 mmol/L LAB CHEMISTRY METHOD 07/28/2024 12:25 PM [facility] Potassium 4.7 3.5 - 5.5 mmol/L LAB CHEMISTRY METHOD 07/28/2024 12:25 PM [facility] Chloride 105 96 - 110 mmol/L LAB CHEMISTRY METHOD 07/28/2024 12:25 PM [facility] CO2 24 21 - 32 mmol/L LAB CHEMISTRY METHOD 07/28/2024 12:25 PM [facility] Anion Gap 6 3 - 11 LAB CHEMISTRY METHOD 07/28/2024 12:25 PM [facility] Glucose 87 70 - 100 mg/dL LAB CHEMISTRY METHOD 07/28/2024 12:25 PM [facility] BUN 14 5 - 25 mg/dL LAB CHEMISTRY METHOD 07/28/2024 12:25 PM [facility] Creatinine 0.68 0.50 - 1.10 mg/dL LAB CHEMISTRY METHOD 07/28/2024 12:25 PM [facility] eGFR 120 >=60 mL/min/1. 73m2 LAB CHEMISTRY METHOD 07/28/2024 12:25 PM [facility] Comment:Calculation based on the Chronic Kidney Disease Epidemiology Collaboration (CKD-EPI) equation refit without adjustment for race. BUN/Creatinine Ratio 20.6 LAB CHEMISTRY METHOD 07/28/2024 12:[address] [facility] Calcium 9.4 8.5 - 10.5 mg/dL LAB CHEMISTRY METHOD 07/28/2024 12:[address] [facility] Blood Venous blood specimen / Unknown Venipuncture / Unknown 07/28/2024 9:47 AM EDT 07/28/2024 9:47 AM EDT Jose Ly MD LAB BLOOD ORDERABLES Final Res ult [facility] [address] [place] [address], * Depression Screening (11/27/2023) [facility] Depression Screening abstracted [facility] Provider HEALTH MAINTENANCE Final Result * Cervical Cancer Screening: HPV (07/02/2022) [facility] Cervical Cancer Screening: HPV No Interpretation , Abstracted Result [facility] Provider HEALTH MAINTENANCE Final Result * Hepatitis C Screening (06/27/2022) [facility] Hepatitis C Screening abstracted [facility] Provider HEALTH MAINTENANCE Final Result * (ABNORMAL) Lipid panel (01/26/2021) [facility] LDL/HDL Ratio 3 0 - 4 Triglycerides 98 0 - 150 mg/dL Cholesterol 203(A) 0 - 200 mg/dL HDL 64 >=40 mg/dL LDL Cholesterol 120(A) 0 - 100 mg/dL Blood Venous blood specimen / Unknown Result [facility] Historical Provider LAB BLOOD ORDERABLES Christine l Result from Last 3 Months or Most Recently Relevant to Health Maintenance Insurance [facility] [place] [address] Care Teams Director Behavioral Health Relationship Specialty Start Date End Date Melissa Sarabia MD [address] [place] [phone] PCP - General 05/24/22
== END 2025-01-11 13:00 | disposition home or self-care (01) ==
LOC: HO.ED 12:58
PROVIDERS: Emergency Provider Emergency Medicine; PCP Internal Medicine
DX: S90.221A Contusion of right lesser toe(s) with damage to nail, initial encounter (principal); S91.204A Unspecified open wound of right lesser toe(s) with damage to nail, initial encounter; L03.031 Cellulitis of right toe; W22.8XXA Striking against or struck by other objects, initial encounter; Y93.9 Activity, unspecified; Y92.9 Unspecified place or not applicable; M79.674 Pain in right toe(s); I10 Essential (primary) hypertension
CPT/HCPCS: 73630; 99282; 99283

== ENCOUNTER → 2025-01-11 11:20 | Outpatient (BNV) | payer OTHER, SELFPAY | PROVIDERS: Emergency Provider Emergency Medicine; Visit Provider Radiology Diagnostic Radiology | DX: S90.931A Unspecified superficial injury of right great toe, initial encounter (principal) | CPT/HCPCS: 73630 ==

== ENCOUNTER 2025-01-15 17:08 | Emergency (ER) | payer OTHER, SELFPAY ==
--- NOTE | ~2025-01-15 | CT_ITS ---
CLINICAL HISTORY: diverticulitis? CT abdomen and pelvis with contrast Comparison: None provided Findings: No consolidation of the imaged lung bases. Mild bibasilar atelectasis and/or pneumonitis (204 of series 4 in the lung windows). Mild fat deposition of the liver. The gallbladder is surgically absent. The adrenal glands are normal. Pancreas partly obscured and otherwise unremarkable. The spleen is nonenlarged. No hydronephrosis. Small mesenteric and retroperitoneal lymph nodes are nonspecific and likely reactive. Fluid in the small bowel loops can be seen with mild enteritis. No small bowel obstruction. The appendix is not definitively seen and likely surgically absent (555 of series 4). Severe stool burden is present, including the cecum. Mild wall thickening of the descending colon and sigmoid colon are nonspecific. Mild colitis is considered. Uterus is retroverted. No adnexal soft tissue mass by CT. Osteoarthritis of the imaged pubic symphysis. Mild thoracic vertebral height losses appear old/chronic and accentuated by upper endplate Schmorl's nodes. Transitional vertebral anatomy with partial sacralization of the L5, right worse than left. Forming pseudoarthroses of the right. IMPRESSION: 1. Mild wall thickening of the descending colon and sigmoid colon are nonspecific. Mild colitis is considered. 2. No small bowel obstruction. This document has been electronically signed by: Jatinder Lamar MD on 01/15/2025 23:56:04
--- NOTE | 2025-01-15 17:33 | ED_ITS ---
HPI - GI Bleed General Chief complaint: General Medical Stated complaint: bloody stool Time Seen by Provider: 01/15/25 20:55 Source: patient Limitations: no limitations History of Present Illness ED Provider: Esperanza Willis PA-C HPI Narrative: 29-year-old female presents with bright red blood per rectum since earlier today. Patient states that today she has had multiple bloody bowel movements, consisting of loose stool and mucus. She has had 5 episodes thus far. She is passing clots at time. Associated lower abdominal cramping. Denies nausea, vomiting or fever. Denies the presence of external hemorrhoids. Denies recent travel, hospitalization, the patient states she just started cephalexin for a toe infection, just days ago. Related Data Previous Rx's ?Medication ?Instructions ?Recorded cephalexin 500 mg capsule 500 mg PO Q6H 7 days #28 cap s 10/05/23 doxycycline hyclate 100 mg tablet 100 mg PO BID #14 ta bs 10/05/23 cephalexin 500 mg capsule 500 mg PO QID 7 days #28 cap s 01/11/25 naproxen 500 mg tablet 500 mg PO BID PRN pain #14 t abs 01/11/25 Allergies Allergy/AdvReac Type Severity Reaction Status Date / Time nifedipine Allergy Rash Verified 01/15/25 17:37 Review of Systems 2 Review of Systems: Yes all other systems are reviewed and are negative Constitutional: Constitutional: Denies fatigue and Denies fever(s) Cardiovascular: Cardiovascular: Denies chest pain and Denies dyspnea Respiratory: Respiratory: Denies dyspnea Gastrointestinal: Gastrointestinal: Reports hematochezia, Denies constipation, Reports GI cramping, Reports diarrhea, Denies nausea and Denies vomiting Endocrine: Endocrine: Denies fatigue PMFSH Past Medical History Attestation statement: The following information was validated with the patient. Social History Social History Advance Directives: No Advance Directives Information Provided: No Do you have a plan to hurt others: No Plan Physical Exam 2 Vital Signs: Vital Signs: Last Vital Signs Temp 97.7 F 01/15/25 23:39 Pulse 76 01/15/25 23:39 Resp 19 01/15/25 23:39 BP 126/71 01/15/25 23:39 Pulse Ox 98 01/15/25 23:39 O2 Del Method Room Air 01/15/25 23:39 BMI result Body Mass Index 45.6 Const: Other: Alert well-appearing Orientation/consciousness: patient oriented x3 Resp: Effort & Inspection: normal respiratory effort Cardio: Other: Normal peripheral perfusion GI: Other: Abdomen is obese, soft, nondistended, mild generalized tenderness across lower abdomen, mid right versus left, no guarding Skin: Other: Warm dry no rash Neuro: General: patient oriented x3, gait normal, no focal motor deficits and CN's II-XI intact bilaterally Psych: Other: Cooperative Course Course Course Narrative: This is a Rapid Medical Exam performed in triage by Mayi Guerrero PA-C. Full HPI, ROS and PE to be performed by primary ED provider. 29 yo F presenting to the ED c/o bright red bloody stool x today with abdominal discomfort & BM urgency . Is currently on Keflex for infected toe. Denies rectal pain. PE: NAD, nontoxic appearing, ambulating with steady gait Plan: Labs, UA Medications Administered Discontinued Medications Generic Name Dose Route Start Last Admin Trade Name Alekq PRN Reason Stop Dose Admin Sodium Chloride 1,000 mls @ 999 mls/hr 01/15/25 21:15 01/15/25 23:34 Ns IV 01/15/25 22:15 999 mls/hr .Q1H1M YARIEL Administration Iohexol 85 ml 01/15/25 22:17 01/15/25 22:21 Iohexol 350 Mg/Ml 100 Ml Infus..Btl IV 01/15/25 22:18 85 ml ONCE ONE Administration Medical Decision Making Medical Decision Making [facility] Narrative: 29-year-old female presents with bright red blood per rectum since earlier today. Patient states that today she has had multiple bloody bowel movements, consisting of loose stool and mucus. She has had 5 episodes thus far. She is passing clots at time. Associated lower abdominal cramping. Denies nausea, vomiting or fever. Denies the presence of external hemorrhoids. Denies recent travel, hospitalization, the patient states she just started cephalexin for a toe infection, just days ago. No underlying chronic issues History: Per patient I have considered the following differential diagnoses: Colitis, diverticulitis, diverticulitis, internal hemorrhoids, traveler's diarrhea, C diff, viral gastroenteritis Plan: Patient likely has diverticulosis, however given concurrent discomfort, could be diverticulitis, we will obtain a CT scan. Her screening labs were already obtained from triage. Overall unremarkable. Likely not viral gastroenteritis, she does not have sick contacts, no concurrent nausea vomiting. Could be colitis, she states she has no family history of UC/Crohn's, or other colitis. Internal hemorrhoids likely would not cause clot formation, or the diarrhea. She has no risk factors for traveler's diarrhea, she just started an antibiotic, C diff we will be least likely, it would not cause bloody stool. I have independently reviewed the following tests: Labs: No leukocytosis, left shift noted, not anemic, no electrolyte abnormality, not , CT abdomen and pelvis:IMPRESSION: 1. Mild wall thickening of the descending colon and sigmoid colon are nonspecific. Mild colitis is considered. 2. No small bowel obstruction. Differential Diagnosis Differential Diagnoses: The differential diagnosis associated with the presentation includes See medical decision-making Admission/Observation Consideration of admission/observation: Escalation of care including admission/observation considered Not applicable Lab Data MDM Lab Attestation statement: I reviewed the patient's lab results. 01/15/25 17:52 01/15/25 17:52 Labs: Lab Results 01/15/25 Range/Units 17:52 WBC 10.1 (4.8-10.8) X10*3/uL RBC 5.05 (4.20-5.50) X10*6/uL Hgb 14.5 (12.0-16.0) g/dl Hct 44.7 (37.0-47.0) % MCV 88.5 (80.0-98.0) fL MCH 28.7 (27.0-33.0) pg MCHC 32.4 (31.0-35.0) g/dl RDW 12.1 (11.0-16.0) % Plt Count 450 H (160-400) X10*3/uL MPV 8.9 L (9.4-12.3) fL Immature Gran % (Auto) 0.3 (0.0-0.4) % Neut % (Auto) 73.7 H (45-73) % Lymph % (Auto) 18.3 L (20-40) % Claiborne % (Auto) 4.2 (2-11) % Eos % (Auto) 3.1 (0-4) % Baso % (Auto) 0.4 (0-2) % Lymph # (Auto) 1.9 (1.2-4.9) X10*3/uL Cla[place]orne # (Auto) 0.4 (0.1-1.2) X10*3/uL Eos # (Auto) 0.3 (0.0-0.4) X10*3/uL Baso # (Auto) 0.0 (0.0-0.2) X10*3/uL Abs Immat Gran (auto) 0.03 (0.00-0.03) X10*3/uL Absolute Neuts (auto) 7.5 (2.0-8.3) x10*3/uL Absolute Nucleated RBC 0.000 (0.0-0.012) X10*3/uL Nucleated RBC % (auto) 0.0 (0.0-0.2) /100WBC Sodium 141 (135-145) mmol/L Potassium 3.8 (3.3-5.1) mmol/L Chloride 106 (96-108) mmol/L Carbon Dioxide 24 (22-29) mmol/L Anion Gap 15 (12-20) BUN 19 H (9-16) mg/dL Creatinine 0.60 (0.5-1.4) mg/dL Estim Creat Clear Calc 192.5 Estimated GFR > 60 Random Glucose 74 (60-115) mg/dL Calcium 9.7 D (8.4-10.2) mg/dL Magnesium 2.2 (1.6-2.6) mg/dL Total Bilirubin 0.2 (0.0-1.0) mg/dL Direct Bilirubin < 0.2 (0.0-0.5) mg/dL AST 35 H (5-31) U/L ALT 39 H (0-31) U/L Alkaline Phosphatase 101 (39-117) U/L Total Protein 8.5 H (6.5-8.0) g/dL Albumin 4.8 (3.5-5.0) g/dL Lipase 19 (8-78) U/L Beta HCG, Quant < 2 mIU/mL Radiology Impression Discussion of test interpretation with radiology: I have reviewed the radiologist's reading. Discharge Plan Discharge Clinical Impression: Colitis, Enteritis Patient Disposition: Home, Self-Care Instructions: Colitis (ED), Enteritis (ED) Additional Instructions: All of your screening labs were normal including your blood counts, the CT scan revealed mild enteritis and mild colitis. You need further assessment as an outpatient by Gastroenterology, to rule out the potential presence of Crohn's disease or ulcerative colitis. It is suspicious given you do not have any additional infectious risk factors to have developed these regions of inflammation. Call your primary care provider Friday to schedule an appointment. I will provide you with a contact for our Gastroenterology Service, you can also contact them to make an appointment. Prescriptions: No Action doxycycline hyclate 100 mg tablet 100 mg PO BID Qty: 14 0RF cephalexin 500 mg capsule 500 mg PO Q6H 7 Days Qty: 28 0RF cephalexin 500 mg capsule 500 mg PO QID 7 Days Qty: 28 0RF naproxen 500 mg tablet 500 mg PO BID PRN (Reason: pain) Qty: 14 0RF Referrals: Jessica Morales MD [Physician, Gastroenterology] Referral Note: Mild enteritis and colitis on CT scan, potential concern for Crohn's versus ulcerative colitis Print Language: Kazakh
[2025-01-15 17:34] VITALS: BP 161/90; PULSE 85; RESP 18; TEMP 36.6; O2SAT 100; BMI 45.6
--- OUTSIDE RECORDS SUMMARY | 2025-01-15 17:48 | XMS_ITS | Clinical Summary ---
Author Organization Patient Business Ser [facility] Address [address] [place] [address] Care Team Providers Care Kst Operator Name Role Phone Melissa Sarabia MD Primary [...] Diagnosed Date NSVT (nonsustained ventricul ar tachycardia) ([facility] V24, [facility] V28) 09/21/2024 Shortness of breath 09/21/2024 Abnormal Holter exam 06/30/2024 Overview (06/30/2024): VENTRICULAR TACHYCARDIA Morbid obesity with BMI of 4 0.0-44.9, adult ([facility] V24, [facility] V28) 03/02/2024 Vitamin D insufficiency 11/27/2023 Chronic [...] Care Team Description 10/26/2024 Telephone Adult Medicine [address] [phone] Melissa Sarabia MD from Last 3 Months [...] gravidarum; COMMENT: 06/12- B6 QID, Krunaldryl at [facility] Added Phenergan suppositories today Zofran PRN [...] care for your loved ones. For example, teacher early childhood development or elderly care for an older adult? [...] Care Team (Late st Contact Info) Description 09/21/2025 10:00 AM EDT Ancillary Procedure [facility] [address] [place] [address] Health Maintenance Due Date Last Done Comments Hepatitis B Vaccines (1 of 3 - 19+ 3-dose series) 2012 Pneumococcal Vaccine: Pediatrics (0 to 5 Years) and At-Risk Patients (6 to 49 Years) (1 of 2 - PCV) 2012 HIV Screening 02/24/2020 HPV Vaccines (1 - 3-dose SCDM series) 2020 Depression Screening 03/17/2024 11/27/2023 COVID-19 Vaccine ( season) 2024 02/23/2021, 02/02/2021 Social Influencers of [...] mmol/L LAB CHEMISTRY METHOD 07/28/2024 12:25 PM [facility] Potassium 4.7 3.5 - 5.5 mmol/L LAB CHEMISTRY METHOD 07/28/2024 12:25 PM [facility] Chloride 105 96 - 110 mmol/L LAB CHEMISTRY METHOD 07/28/2024 12:25 PM [facility] CO2 24 21 - 32 mmol/L LAB CHEMISTRY METHOD 07/28/2024 12:25 PM [facility] Anion Gap 6 3 - 11 LAB CHEMISTRY METHOD 07/28/2024 12:25 PM [facility] Glucose 87 70 - 100 mg/dL LAB CHEMISTRY METHOD 07/28/2024 12:25 PM [facility] BUN 14 5 - 25 mg/dL LAB CHEMISTRY METHOD 07/28/2024 12:25 PM [facility] Creatinine 0.68 0.50 - 1.10 mg/dL LAB CHEMISTRY METHOD 07/28/2024 12:25 PM [facility] eGFR 120 >=60 mL/min/1. 73m2 LAB CHEMISTRY METHOD 07/28/2024 12:25 PM [facility] Comment:Calculation based on the Chronic Kidney Disease Epidemiology Collaboration (CKD-EPI) equation refit without adjustment for race. BUN/Creatinine Ratio 20.6 LAB CHEMISTRY METHOD 07/28/2024 12:25 PM [facility] Calcium 9.4 8.5 - 10.5 mg/dL LAB CHEMISTRY METHOD 07/28/2024 12:25 PM [facility] Blood Venous blood specimen / Unknown Venipuncture / Unknown 07/28/2024 9:47 AM EDT 07/28/2024 9:47 AM EDT Jose Ly MD LAB BLOOD ORDERABLES [facility] [address] [place] [address], [place] [phone] * Depression Screening (11/27/2023) Pathologist [facility] Depression Screening abstracted Historical Provider HEALTH MAINTENANCE Final Result * Cervical Cancer Screening: HPV (07/02/2022) [facility] Cervical Cancer Screening: HPV No Interpretation , Abstracted Historical Provider HEALTH MAINTENANCE Final Result * Hepatitis C Screening (06/27/2022) [facility] Hepatitis C Screening abstracted Historical Provider HEALTH MAINTENANCE Final Result * (ABNORMAL) Lipid panel (01/26/2021) [facility] LDL/HDL Ratio 3 0 - 4 Triglycerides 98 0 - 150 mg/dL Cholesterol 203(A) 0 - 200 mg/dL HDL 64 >=40 mg/dL LDL Cholesterol 120(A) 0 - 100 mg/dL Blood Venous blood specimen / Unknown Historical Provider LAB BLOOD ORDERABLES Christine l Result from Last 3 Months or Most Recently Relevant to Health Maintenance Insurance [facility] [facility] Care Teams Kst Operator Relationship Specialty Start Date End Date Melissa Sarabia MD [address] [place] [id number] PCP - General 05/24/22
[2025-01-15 17:56] LABS: MANUAL DIFF FLAG NO
[2025-01-15 17:57] LABS: Hematocrit 44.7 % (37.0-47.0); Hemoglobin 14.5 g/dl (12.0-16.0); Imm Gran Abs Auto 0.03 X10*3/uL (0.00-0.03); Imm Gran Pct Auto 0.3 % (0.0-0.4); Lymphocytes Absolute Auto 1.9 X10*3/uL (1.2-4.9); Mean Corpuscular HGB Conc 32.4 g/dl (31.0-35.0); Mean Corpuscular Hemoglobin 28.7 pg (27.0-33.0); Mean Corpuscular Volume 88.5 fL (80.0-98.0); NRBC Abs Auto 0.000 X10*3/uL (0.0-0.012); NRBC Pct Auto 0.0 /100WBC (0.0-0.2); Platelet Count 450 X10*3/uL (160-400); Red Blood Count 5.05 X10*6/uL (4.20-5.50); White Blood Count 10.1 X10*3/uL (4.8-10.8)
[2025-01-15 18:12] LABS: Alanine Aminotransferase 39 U/L (0-31); Albumin Level 4.8 g/dL (3.5-5.0); Alkaline Phosphatase 101 U/L (39-117); Anion Gap 15 (12-20); Aspartate Amino Transferase 35 U/L (5-31); Blood Urea Nitrogen 19 mg/dL (9-16); Calcium 9.7 mg/dL (8.4-10.2); Carbon Dioxide 24 mmol/L (22-29); Chloride 106 mmol/L (96-108); Creatinine Clr Calc Pharmacy 192.5; Estimated Glomerular Filt Rate > 60; Lipase 19 U/L (8-78); Magnesium 2.2 mg/dL (1.6-2.6); Potassium 3.8 mmol/L (3.3-5.1); Sodium 141 mmol/L (135-145); Total Protein 8.5 g/dL (6.5-8.0)
[2025-01-15] MEDS: iohexoL 350 MG/ML 100 ML INFUS..BTL 85 ML IV (22:21)
[2025-01-15 22:37] VITALS: BP 140/80; PULSE 71; RESP 18; TEMP 36.8; O2SAT 100
--- NOTE | 2025-01-15 23:37 | PC.NURSE ---
Hung fluids and notified SKYE Amaya
[2025-01-15 23:39] VITALS: BP 126/71; PULSE 76; RESP 19; TEMP 36.5; O2SAT 98
[2025-01-16 00:45] VITALS: BP 126/71; PULSE 76; RESP 19; TEMP 36.5; O2SAT 98
[2025-01-16 01:12] LABS: Appearance Urine Clear; Glucose Urine UA Negative (Negative); PH 5.5 (5.0-9.0); Specific Gravity - Urine >= 1.030 (1.005-1.025); UMIC TRIGGER UACC YES
[2025-01-16 01:14] LABS: UPreg QC Valid YES
== END 2025-01-16 00:55 | disposition home or self-care (01) ==
PROVIDERS: Physician Assistant; Physician Assistant Medical; Emergency Provider Emergency Medicine; PCP Internal Medicine
DX: K52.9 Noninfective gastroenteritis and colitis, unspecified (principal); K92.1 Melena; R25.2 Cramp and spasm; R11.0 Nausea; Z79.899 Other long term (current) drug therapy
CPT/HCPCS: 36415; 74177; 80048; 80076; 81001; 81025; 83690; 83735; 84702; 85025; 96360; 99283; 99285; Q9967

== ENCOUNTER → 2025-01-15 21:14 | Outpatient (BNV) | payer OTHER, SELFPAY | PROVIDERS: Emergency Provider Emergency Medicine; PCP Internal Medicine; Visit Provider Radiology Neuroradiology | DX: K63.89 Other specified diseases of intestine (principal) | CPT/HCPCS: 74177 ==

== ENCOUNTER 2025-01-20 12:26 | Emergency (ER) | payer OTHER, SELFPAY ==
--- OUTSIDE RECORDS SUMMARY | 2025-01-18 11:30 | XMS_ITS | Encounter Summary ---
Author Organization [facility] Address [address] [place] [address] Care Team Providers Care Time Clock Mechanic Name Role Phone Melissa Sarabia MD Primary Care Prov ider Reason for Visit * Reason Comments ER follow up [facility] [place] Encounter Details Date Type Department Care Team (Late st Contact Info) Description 01/18/2025 11:30 AM EST Office Visit Adult Medicine [facility] [address] [place] [address] Shahana Urbina PA [address] [place], [place] Seen in emergency department (Primary Dx); Colitis; Rectal bleeding; Morbid obesity with BMI of 45.0-49.9, adult ([facility] V24, [facility] V28) Social History Tobacco Use Types Packs/Day Years [...] Record ed Within the last 3 months, arianna guerin many times did you visit the emergency [...] care for your loved ones. For example, early childhood education specialist or elderly care for an older adult? [...] on file Sexual Orientation Not on file documented as of this encounter Last Filed Vital Signs Vital Sign Reading Time Taken Comments Blood Pressure 113/69 01/18/2025 11:36 AM EST Pulse 62 01/18/2025 11:36 AM EST Temperature 36.1 C (96.9 F) 01/18/2025 11:36 AM EST Respiratory Rate 15 01/18/2025 11:36 AM EST Oxygen Saturation 99% 01/18/2025 11:36 AM EST Inhaled Oxygen Concentration - - Weight 130 kg (287 lb 6.4 oz) 01/18/2025 11:36 A M EST Height 170.2 cm (5' 7 ) 01/18/2025 11:36 AM EST Body Mass Index 45.01 01/18/2025 11:36 AM EST documented in this encounter Patient Instructions * Attachments The following attachments cannot be sent through Care Everywhere. * Colitis (Greek) documented in this encounter Progress Notes * RENETTA Navarro - 01/18/2025 11:30 AM EST CHIEF COMPLAINT: ER follow up ([facility] [place]) IDENTIFIER: Dorys Renee is a 29 y.o. old female. HPI: Patient present today for re-evaluation after emergency room visit for 01/15/2025 at [facility] on rectal bleeding. Patient presented to [facility] emergency department on 01/15/2025 with primary complaint of bright red blood per rectum for 1 day. She reported that it was straight blood. She was started on cephalexin for toe infection and notes that this started after being started on the cephalexin. At that time she denied nausea or vomiting. She had lab work completed that showed stable H&H with values at 14.5 and 44.7 respectively. She reports that she self discontinued the medication with resolution. She had CT of the abdomen pelvis that showed mild wall thickening of the descending colon and sigmoid colon that could be specific for mild colitis. She notes that on 01/09/2025 she split her toe open and notes that she was placed on antibiotics. She notes that she was started on cephalexin at that time and noted side effect included blood diarrhea. She notes that she stopped the antibiotic and that the bleeding had stopped. She stopped the antibiotic after the morning of the 15 of January. She has no family history of celiac disorder, colon cancer, Crohn's or ulcerative colitis. No weight loss or night sweats. She does not have well water at home. Dorys notes that she is still having fecal urgency with increased frequency of stool andloose stools. Information was extracted from the emergency room notes from 01/15/2025. The history was reviewed for accuracy and confirmed by myself. I have reconciled the current and discharge meds. ROS: GENERAL: Negative for malaise, significant weight loss and fever RESPIRATORY: No cough, wheezing or shortness of breath CARDIOVASCULAR: Negative for chest pain, leg swelling and palpitations GI: See HPI : Negative for dysuria, frequency, and incontinence APPROVER: Negative for abnormal vaginal bleeding and abnormal vaginal discharge PAST MEDICAL HISTORY: Patient Active Problem List Diagnosis Date Noted NSVT (nonsustained ventricular tachycardia) ([facility], [facility]) 09/21/2024 Shortness of breath 09/21/2024 Abnormal Holter exam 06/30/2024 Morbid obesity with BMI of 40.0-44.9, adult ([facility], [facility] V28) 03/02/2024 Vitamin D insufficiency 11/27/2023 Chronic hypertension in 07/02/2022 Herpes simplex vulvovaginitis 10/30/2021 Muscle hypertonicity 06/15/2020 Gallstones 03/09/2020 Childhood asthma 02/15/2020 Other constipation 02/15/2020 Maternal varicella, non-immune 02/11/2020 SOCIAL HISTORY: Social History Tobacco Use Smoking status: Former Current packs/day: 0.00 Types: Cigarettes Quit date: 05/16/2011 Years since quittin.6 Smokeless tobacco: Never Substance Use Topics Alcohol use: No FAMILY HISTORY: Family History[1] Family Status Relation Name Status Mother Alive Father Alive Sister Sister Alive MGM Alive MGF PGM Alive PGF Alive Son Alive Son Alive Son Alive Son Alive Neg Hx (Not Specified) No partnership data on file MEDICATIONS DISCONTINUED/REORDERED: There are no discontinued medications. ACTIVE MEDICATIONS: Medications Taking[2] ALLERGIES: Nifedipine PHYSICAL EXAM: Blood pressure 113/69, pulse 62, temperature 36.1 ??C (96.9 ??F), temperature source Temporal, resp. rate 15, height 1.702 m (67 ), weight 130 kg (287 lb 6.4 oz), last menstrual period 01/03/2025, SpO2 99%. Body mass index is 45.01 kg/m??. BMI is greater than 25.0 (above the normal range) - see Plan APPEARANCE: Alert and in no acute distress, cooperative, in no acute distress, morbidly obese HEART: RRR with normal S1 and S2, no murmurs, no gallops, no JVD appreciated LUNG: clear to auscultation bilaterally ABDOMEN: Bowel sounds normoactive, no bruits and soft, non-tender, without organomegaly or palpablemasses LABS: Lab Results Component Value Date WBC 7.8 07/28/2024 HGB 12.9 07/28/2024 HCT 40.3 07/28/2024 MCV 89.6 07/28/2024 PLT 404 (H) 07/28/2024 Lab Results Component Value Date NA 135 07/28/2024 K 4.7 07/28/2024 CL 105 07/28/2024 CO2 24 07/28/2024 GLUCOSE 87 07/28/2024 BUN 14 07/28/2024 CREATININE 0.68 07/28/2024 CALCIUM 9.4 07/28/2024 PROT 8.0 06/10/2024 ALBUMIN 3.8 06/10/2024 BILITOT 0.3 06/10/2024 AST 17 06/10/2024 ALT 24 06/10/2024 ALKPHOS 111 06/10/2024 EGFR 120 07/28/2024 IMAGING: NA IMPRESSION: 1. Seen in emergency department 2. Colitis 3. Rectal bleeding 4. Morbid obesity with BMI of 45.0-49.9, adult ([facility] V24, [facility] V28) PLAN: . Seen in emergency department/colitis/rectal bleeding: Patient with diagnosis of colitis from [facility] emergency department. She had CT completed in the emergency department that showed mild colitis. I have recommended additional testing utilizing urine culture given her prolonged aching. She had stable lab work as completed in the ER. Recommendation from emergency room staff was follow-up with gastroenterology. Note reviewed. Patient given patient information on colitis. Referral to gastroenterology placed. She specifically requests a referral to [facility].Her questions in regard to this answered to the best of my ability. Patient understands and agrees to this plan and acknowledges to contact me with any additional questions or concerns. Medication and lab orders: No orders of the defined types were placed in this encounter. Other orders: None Shahana Urbina PA-C on 01/18/2025 at 11:58 AM EST [1] Family History Problem Relation Name Age of Onset Hypertension Mother asthma, depression No Known Problems Father no contact, drug user Drug abuse Sister heroin overdose Other (Other: Other) Sister scoliosis CABG Maternal Grandmother Diabetes Maternal Grandfather lost top half of rt foot, in sleep Glaucoma Paternal Grandmother Lung cancer Paternal Grandfather No Known Problems Son No Known Problems Son No Known Problems Son No Known Problems Son Breast cancer Neg Hx Ovarian cancer Neg Hx Uterine cancer Neg Hx Cervical cancer Neg Hx [2] Outpatient Medications Marked as Taking for the 01/18/25 encounter (Office Visit) with RENETTA Navarro Medication Sig Dispense Refill metoprolol succinate (TOPROL-XL) 50 mg 24 hr tablet Take 1 tablet (50 mg total) by mouth 1 (one) time each day. Do not crush or chew. 90 each 3 documented in this encounter Plan of Treatment Upcoming Encounters Date Type Department Care Team (Late st Contact Info) Description 05/20/2025 7:30 AM EST Office Visit Adult Medicine [address] [phone] Melissa Sarabia MD [address] [place] [address] 09/21/2025 10:00 AM EDT Ancillary Procedure [facility] [address] [facility] [address] [place] [address] documented as of this encounter Results * Culture urine (01/18/2025 12:20 PM EST) Culture, Urine 10,000-49,000 CFU/mL Mixed urogenital luz maria, no uropathogens present. Suggest repeat specimen if clinically indicated. 01/19/2025 11:16 AM EST [facility] ([facility] Urine Urine specimen obtained by clean catch procedure / Unknown Non-blood Collection / Unknown 01/18/2025 12:20 PM EST 01/18/2025 12:20 PM EST us Shahana JACKSON [facility] MICROBIOLOGY - GENERAL KATY PIEDRA Final Result [facility] ([facility]) [facility] [address] [place] [address], documented in this encounter Visit Diagnoses Diagnosis Seen in emergency department- Primary Colitis Other and unspecified noninfectious gastroenteritis and colitis Rectal bleeding Hemorrhage of rectum and anus Morbid obesity with BMI of 45.0-49.9, adult (CMS/HCC V24, CMS/HCC V28) documented in this encounter Additional Health Concerns Assessment Noted Time PHQ-9 Depression Total Score: 0 01/19/20 25 11:39 AM EST documented as of this encounter Care Teams Time Clock Mechanic Relationship Specialty Start Date End Date Melissa Sarabia MD [address] [place] [phone] PCP - General 05/24/22 documented as of this encounter
--- OUTSIDE RECORDS SUMMARY | 2025-01-18 12:15 | XMS_ITS | Encounter Summary ---
Author Organization [facility] Address [address] [place] [address] Care Team Providers Care Filler Sifter Machine Name Role Phone Melissa Sarabia MD Primary Care Prov ider Encounter Details Date Type Department Care Team (Late st Contact Info) Description 01/18/2025 12:15 PM EST Lab Draw Station - [address] [address] Morbid obesity with BMI of 40.0-44.9, adult (CMS/HCC V24, CMS/HCC V28) (Primary Dx); Family history of combined hyperlipidemia; Seen in emergency department; Colitis; Rectal bleeding Social History Tobacco Use Types Packs/Day Years Used Date Smoking Tobacco: Former Cigarettes Q uit: 05/16/2011 Smokeless Tobacco: Never Alcohol Use Standard Drinks/Week Comments No 0 [...] care for your loved ones. For example, childcare provider or elderly care for an older adult? [...] on file documented as of this encounter Plan of Treatment Upcoming Encounters Date Type Department Care Team (Late st Contact Info) Description 05/20/2025 7:30 AM EST Office Visit Adult Medicine [address] [phone] Melissa Sarabia MD [address] [place] [address] 09/21/2025 10:00 AM EDT Ancillary Procedure [facility] - [address] [place] [address] Scheduled Orders Name Type Priority Associated Diagnoses Orde r Schedule Lipid panel with reflex to direct LDL Lab Routine Morbid obesity with BMI of 40.0-44.9, adult ([place] V24, [place] V28) 1 Occurrences starting 01/18/2025 until 01/18/2026 documented as of this encounter Procedures Procedure Name Priority Date/Time Associated Diagnosis Comments CULTURE URINE Routine 01/18/2025 12:20 PM EST Seen in emergency department Colitis Rectal bleeding documented in this encounter Results * Culture urine (01/18/2025 12:20 PM EST) Culture, Urine 10,000-49,000 CFU/mL Mixed urogenital luz maria, no uropathogens present. Suggest repeat specimen if clinically indicated. 01/19/2025 11:16 AM EST [facility] Urine Urine specimen obtained by clean catch procedure / Unknown Non-blood Collection / Unknown 01/18/2025 12:20 PM EST 01/18/2025 12:20 PM EST us Shahana JACKSON LAB MICROBIOLOGY - GENERAL ORDMacho PIEDRA Final Result [facility] [address] [place] [address], documented in this encounter Visit Diagnoses Diagnosis Morbid obesity with BMI of 40.0-44.9, adult ([place] V24, [place] V28)- Primary Family history of combined hyperlipidemia Seen in emergency department Colitis Other and unspecified noninfectious gastroenteritis and colitis Rectal bleeding Hemorrhage of rectum and anus documented in this encounter Additional Health Concerns Assessment Noted Time PHQ-9 Depression Total Score: 0 01/19/20 25 11:39 AM EST documented as of this encounter Care Teams Filler Sifter Machine Relationship Specialty Start Date End Date Melissa Sarabia MD [address] [place] [address] PCP - General 05/24/22 documented as of this encounter
[2025-01-20 12:34] VITALS: BP 138/74; PULSE 72; RESP 18; TEMP 36.6; O2SAT 100; BMI 45.0
--- NOTE | 2025-01-20 12:35 | ED.GENADULT ---
HPI - General Adult General Chief complaint: Abdominal Pain Stated complaint: Colitis, seen recently Time Seen by Provider: 01/20/25 14:53 Source: patient, RN notes reviewed and old records reviewed Mode of arrival: ambulatory Limitations: no limitations History of Present Illness ED Provider: [facility] narrative: Patient is a 29-year-old female presenting to the emergency department with complaint of worsening lower abdominal cramping as well as mucous like diarrhea. She was evaluated in this emergency department on Friday and diagnosed with colitis. States that her rectal bleeding has since resolved but the pain has worsened. She also reports frequent urges to have bowel movements. Denies fevers. Denies any nausea or vomiting. She was recently treated with a course of cephalexin for a toe infection but discontinued this on her own when she developed rectal bleeding. She reports that her toe infection has resolved. MD complaint: Abdominal pain Related Data Previous Rx's ?Medication ?Instructions ?Recorded cephalexin 500 mg capsule 500 mg PO Q6H 7 days #28 caps 10/05/23 doxycycline hyclate 100 mg tablet 100 mg PO BID #14 tabs 10/05/23 cephalexin 500 mg capsule 500 mg PO QID 7 days #28 caps 01/11/25 naproxen 500 mg tablet 500 mg PO BID PRN pain #14 tabs 01/11/25 dicyclomine 10 mg capsule 10 mg PO TID #20 caps 01/20/25 Allergies Allergy/AdvReac Type Severity Reaction Status Date / Time nifedipine Allergy Rash Verified 01/20/25 12:38 Review of Systems Review of Systems: As per HPI Yes all other systems are reviewed and are negative Constitutional: Constitutional: Reports as per HPI [facility] Social History Social History Advance Directives: No Advance Directives Information Provided: Yes Do you have a plan to hurt others: No Plan Physical Exam ED Vital Signs: Vital Signs - 24 hr 01/20/25 12:34 01/20/25 16:38 Temperature 97.8 F 97.8 F Pulse Rate 72 62 Respiratory Rate 18 16 Blood Pressure 138/74 116/80 Pulse Oximetry 100 99 Oxygen Delivery Method Room Air Room Air BMI result Body Mass Index 45.0 Vital signs have been reviewed and appear to be correct. Blood pressure normal. Heart rate normal. Respiratory rate normal. Temperature normal. Oxygen saturation normal. Const General: cooperative, healthy appearing and no acute distress Orientation/consciousness: oriented to person, oriented to place, oriented to time and patient oriented x3 Limitations: no limitations HENMT Head: Yes normocephalic and Yes atraumatic Ears: external ears normal General nose exam: Normal external nose present Face and sinus: Yes face symmetric Mouth: oropharynx normal and moist mucous membranes Throat: Yes uvula midline Eyes Pupils: Equal, round and reactive pupils present Neck Neck: Yes normal visual inspection and Yes supple Resp Effort & Inspection: normal respiratory effort and able to speak in complete sentences Auscultation: clear to auscultation bilaterally Cardio Rate: regular rate Rhythm: regular rhythm Heart sounds: S1 normal heart sound present and S2 normal heart sound present GI Palpation (GI): Soft to palpation, Tenderness to palpation present (GI) (mild diffuse tenderness to palpation), no guarding and No Rebound tenderness present Auscultation: normoactive bowel sounds General: Yes no CVA tenderness Back/Spine/Pelvis Back: no CVA tenderness Skin General skin exam: elasticity normal and turgor normal Neuro General: oriented to person, oriented to place, oriented to time, patient oriented x3, moves all extremities, no focal motor deficits and CN's II-XI intact bilaterally Cranial nerves: Yes Equal, round and reactive pupils present Cognition (Neuro): normal cognition Extrem General: Yes full ROM, Yes no pedal edema and Yes no calf tenderness Psych Mental Status: mental status grossly normal Affect: normal affect Thought process: Normal thought process present Course Course Course Narrative: Rapid medical examination performed in triage by Damaris Jerry PA-C: Patient is a 29 year old assigned female at presenting to the emergency department with abdominal pain. Detailed physical exam and review of systems are deferred to the display designer outside. Labs ordered. Patient placed back in the waiting room pending room availability and results. 1800 Damaris Jerry PA-C ---> Patient cleared for discharge. Medical Decision Making Medical Decision Making MDM Narrative: Patient is a 29-year-old female presenting to the emergency department with complaint of worsening lower abdominal cramping as well as mucous like diarrhea. On exam patient is awake, A+Ox3, VS WNL, afebrile, normal neurological exam without focal deficits, physical exam findings as above. Given reported symptoms and physical exam findings, initial differential includes but is not limited to colitis, c. diff, other infectious diarrhea. Labs unremarkable. Patient attempting to provide stool sample. Case discussed with for recommendations. She agrees with obtaining stool for C. diff and GI panel, will come to ED to evaluate patient. Patient seen by Dr. Garcia who evaluated patient in the ED and feels that symptoms are likely due to resolving viral or bacterial gastroenteritis. She recommends discharge on Bentyl for pain after patient has provided stool sample. Patient will follow up with GI outpatient. Patient signed out to RENETTA Ocampo pending stool sample. Prescription sent to pharmacy. Patient in agreement with plan. Differential Diagnosis Differential Diagnoses: The differential diagnosis associated with the presentation includes as per [facility] Admission/Observation Consideration of admission/observation: Escalation of care including admission/observation considered Patient would have been admitted to the hospital and transferred to appropriate facility had their clinical presentation warranted hospital admission. Consult Healthcare Provider Management of the patient was discussed with: Service Worker Helper (Dr. Garcia) Lab Data [facility] Lab Attestation statement: I reviewed the patient's lab results. as per [facility] 01/20/25 14:33 01/20/25 14:33 Labs: Lab Results 01/20/25 Range/Units 14:33 WBC 7.4 (4.8-10.8) X10*3/uL RBC 4.37 (4.20-5.50) X10*6/uL Hgb 12.5 (12.0-16.0) g/dl Hct 38.7 (37.0-47.0) % MCV 88.6 (80.0-98.0) fL MCH 28.6 (27.0-33.0) pg MCHC 32.3 (31.0-35.0) g/dl RDW 12.2 (11.0-16.0) % Plt Count 398 (160-400) X10*3/uL MPV 8.9 L (9.4-12.3) fL Immature Gran % (Auto) 0.1 (0.0-0.4) % Neut % (Auto) 60.1 (45-73) % Lymph % (Auto) 28.0 (20-40) % Ogle % (Auto) 6.1 (2-11) % Eos % (Auto) 5.2 H (0-4) % Baso % (Auto) 0.5 (0-2) % Lymph # (Auto) 2.1 (1.2-4.9) X10*3/uL Ogle # (Auto) 0.5 (0.1-1.2) X10*3/uL Eos # (Auto) 0.4 (0.0-0.4) X10*3/uL Baso # (Auto) 0.0 (0.0-0.2) X10*3/uL Abs Immat Gran (auto) 0.01 (0.00-0.03) X10*3/uL Absolute Neuts (auto) 4.4 (2.0-8.3) x10*3/uL Absolute Nucleated RBC 0.000 (0.0-0.012) X10*3/uL Nucleated RBC % (auto) 0.0 (0.0-0.2) /100WBC Sodium 137 (135-145) mmol/L Potassium 3.7 (3.3-5.1) mmol/L Chloride 107 (96-108) mmol/L Carbon Dioxide 24 (22-29) mmol/L Anion Gap 10 L (12-20) BUN 17 H (9-16) mg/dL Creatinine 0.66 (0.5-1.4) mg/dL Estim Creat Clear Calc 173.7 Estimated GFR > 60 Random Glucose 120 H (60-115) mg/dL Calcium 9.1 D (8.4-10.2) mg/dL Magnesium 2.1 (1.6-2.6) mg/dL Total Bilirubin 0.2 (0.0-1.0) mg/dL AST 23 (5-31) U/L ALT 24 (0-31) U/L Alkaline Phosphatase 82 (39-117) U/L Total Protein 7.3 (6.5-8.0) g/dL Albumin 4.1 (3.5-5.0) g/dL External Record Review External record reviewed: Inpatient record, Office record and Outpatient record Prescription Management I considered prescription management with: Pain Medication Discharge Plan Discharge Clinical Impression: Colitis, Gastroenteritis Instructions: Enteritis (ED) Additional Instructions: You were evaluated in the emergency department today for abdominal pain and abnormal stool. You were evaluated by the customer engineering specialist, Dr. Garcia, while in the emergency department who feels that your symptoms are likely due to a resolving viral or bacterial infection. You are being prescribed a medication called Romulo for pain, take this as prescribed. Follow-up with the gastroenterology office outpatient if your symptoms persist. Return to the emergency department if you again develop blood in your stool, worsening pain, fever 100.4? F or greater, persistent vomiting, or any other new or concerning symptoms. Prescriptions: New dicyclomine 10 mg capsule 10 mg PO TID Qty: 20 0RF No Action doxycycline hyclate 100 mg tablet 100 mg PO BID Qty: 14 0RF cephalexin 500 mg capsule 500 mg PO Q6H 7 Days Qty: 28 0RF cephalexin 500 mg capsule 500 mg PO QID 7 Days Qty: 28 0RF naproxen 500 mg tablet 500 mg PO BID PRN (Reason: pain) Qty: 14 0RF Print Language: Albanian
--- NOTE | 2025-01-20 14:35 | PC.NURSE ---
Labs drawn and sent for analysis. Results pending.
[2025-01-20 14:37] LABS: MANUAL DIFF FLAG NO
[2025-01-20 14:39] LABS: Hematocrit 38.7 % (37.0-47.0); Hemoglobin 12.5 g/dl (12.0-16.0); Imm Gran Abs Auto 0.01 X10*3/uL (0.00-0.03); Imm Gran Pct Auto 0.1 % (0.0-0.4); Lymphocytes Absolute Auto 2.1 X10*3/uL (1.2-4.9); Mean Corpuscular HGB Conc 32.3 g/dl (31.0-35.0); Mean Corpuscular Hemoglobin 28.6 pg (27.0-33.0); Mean Corpuscular Volume 88.6 fL (80.0-98.0); NRBC Abs Auto 0.000 X10*3/uL (0.0-0.012); NRBC Pct Auto 0.0 /100WBC (0.0-0.2); Platelet Count 398 X10*3/uL (160-400); Red Blood Count 4.37 X10*6/uL (4.20-5.50); White Blood Count 7.4 X10*3/uL (4.8-10.8)
[2025-01-20 14:59] LABS: Alanine Aminotransferase 24 U/L (0-31); Albumin Level 4.1 g/dL (3.5-5.0); Alkaline Phosphatase 82 U/L (39-117); Anion Gap 10 (12-20); Aspartate Amino Transferase 23 U/L (5-31); Blood Urea Nitrogen 17 mg/dL (9-16); Calcium 9.1 mg/dL (8.4-10.2); Carbon Dioxide 24 mmol/L (22-29); Chloride 107 mmol/L (96-108); Creatinine Clr Calc Pharmacy 173.7; Estimated Glomerular Filt Rate > 60; Magnesium 2.1 mg/dL (1.6-2.6); Potassium 3.7 mmol/L (3.3-5.1); Sodium 137 mmol/L (135-145); Total Protein 7.3 g/dL (6.5-8.0)
--- NOTE | 2025-01-20 16:24 | PM.GICN ---
History of Present Illness Data of Consult Service Date: 01/20/25 Requesting physician: Camryn Oconnor Primary Care Provider: Melissa Wan MD [facility] Reason for consult: colitis 29 YF seen at [facility] on 01/20/25 with worsening lower abdominal pain/cramping associated with mucous like diarrhea. She also reports frequent urges to have bowel movements. Denies fevers. Denies any nausea or vomiting. Pt reports being treated with a course of cephalexin for a toe infection and discontinued this on her own when she developed rectal bleeding. She reports that her toe infection has resolved. 01/15/25 Pt was seen at [facility] with abd pain and rectal bleeding and was diagnosed with colitis. Pt states that her rectal bleeding has since resolved but the pain has worsened. 01/15/[address] SCAN SHOWED: Severe stool burden is present, including the cecum. Mild wall thickening of the descending colon and sigmoid colon are nonspecific. Mild colitis is considered. IMPRESSION: 1. Mild wall thickening of the descending colon and sigmoid colon are nonspecific. Mild colitis is considered. 2. No small bowel obstruction. Review of Systems Review of Systems: Yes all other systems are reviewed and are negative [facility] Social History Social History Advance Directives: No Advance Directives Information Provided: Yes Do you have a plan to hurt others: No Plan Meds Allergies Allergy/AdvReac Type Severity Reaction Status Date / Time nifedipine Allergy Rash Verified 01/20/25 12:38 Physical Exam Vital Signs: Vital Signs: Last Vital Signs Temp 97.8 F 01/20/25 12:34 Pulse 72 01/20/25 12:34 Resp 18 01/20/25 12:34 BP 138/74 01/20/25 12:34 Pulse Ox 100 01/20/25 12:34 O2 Del Method Room Air 01/20/25 12:34 BMI result Body Mass Index 45.0 Const: General: no acute distress Nutritional Appearance: obese Orientation/consciousness: patient oriented x3 Limitations: no limitations HEENT: Head: Yes normal to inspection Ears: hearing grossly normal bilaterally Eyes: Sclerae: sclerae normal Pupils: Equal, round and reactive pupils present Neck: Neck: Yes normal visual inspection Chest: Chest palpation & inspection: normal inspection of the chest Resp: Effort & Inspection: normal respiratory effort Auscultation: clear to auscultation bilaterally Cardio: Palpation: normal PMI Rate: regular rate Rhythm: regular rhythm Heart sounds: S1 normal heart sound present, S2 normal heart sound present and no murmurs GI: Inspection: Yes obesity Palpation (GI): Soft to palpation, Tenderness to palpation present (GI) (Mild to moderate diffuse lower abdominal tenderness without rebound) and No hepatosplenomegaly present Auscultation: normal bowel sounds Rectal Exam - Female: deferred Skin: General skin exam: no rashes or lesions noted Neuro: General: patient oriented x3, gait normal and moves all extremities Cranial nerves: Yes Equal, round and reactive pupils present Psych: Appearance: grossly normal Mental Status: mental status grossly normal Results Labs 01/20/25 14:33 01/20/25 14:33 Labs: Short CBC 01/20/25 Range/Units 14:33 WBC 7.4 (4.8-10.8) X10*3/uL Hgb 12.5 (12.0-16.0) g/dl Hct 38.7 (37.0-47.0) % Plt Count 398 (160-400) X10*3/uL BMP 01/20/25 14:33 Sodium 137 Potassium 3.7 Chloride 107 Carbon Dioxide 24 BUN 17 H Creatinine 0.66 Calcium 9.1 D Liver Function 01/20/25 Range/Units 14:33 Total Bilirubin 0.2 (0.0-1.0) mg/dL AST 23 (5-31) U/L ALT 24 (0-31) U/L Alkaline Phosphatase 82 (39-117) U/L Albumin 4.1 (3.5-5.0) g/dL Assessment and Plan (1) Colitis: Status: Acute Plan 29 YF seen at [facility] on 01/20/25 with worsening lower abdominal pain/cramping associated with mucous like diarrhea. Denies fevers. Denies any nausea or vomiting. Pt reports being treated with a course of cephalexin for a toe infection and discontinued this on her own when she developed rectal bleeding. 01/15/25 Pt was seen at [facility] with abd pain and rectal bleeding and was diagnosed with colitis. Pt states that her rectal bleeding has since resolved but the pain has worsened. Pt likely has resolving C diff colitis related to recent antibiotic use or viral/bacterial gastroenteritis. IBD is unlikely given short duration of symptoms RECOMMENDATIONS: 1. Agree with GI panel and checking stool for C diff toxin. 2. Bentyl 20 mg three times daily p.r.n. for abdominal pain 3. Pt advised to call GI clinic next week if symptoms do not subside to schedule a flexible sigmoidoscopy Procedures Date of Service Date of Service: 01/20/25
[2025-01-20 16:38] VITALS: BP 116/80; PULSE 62; RESP 16; TEMP 36.6; O2SAT 99
--- NOTE | 2025-01-20 16:52 | PC.NURSE ---
Attempted to provide stool sample, but was unable.
--- OUTSIDE RECORDS SUMMARY | 2025-01-20 17:21 | XMS_ITS | Encounter Summary ---
Author Organization [facility] [address] Address [address] [place] [address] Care Team Providers Care Assistant Curator Name Role Phone Melissa Sarabia MD Primary Care Prov ider Encounter Details Date Type Department Care Team (Late st Contact Info) Description 01/19/2025 Results Follow-Up Adult Medicine [facility] [address] [place], [place] [phone] Shahana Urbina PA [address] [place], [place] Social History Tobacco Use Types Packs/Day Years [...] ed Within the last 3 months, arianna w many times did you visit the [...] for your loved ones. For example, child care attendant school or elderly care for an older adult? [...] 7:30 AM EST Office Visit Adult Medicine [address] [phone] Melissa Sarabia MD [address] [place] [address] 09/21/2025 10:00 AM EDT Ancillary Procedure [facility] [address] [place] [address] documented as of this encounter Visit Diagnoses Not on filedocumented in this encounter Additional Health Concerns Assessment Noted Time PHQ-9 Depression Total Score: 0 01/19/20 25 11:39 AM EST documented as of this encounter Care Teams Assistant Curator Relationship Specialty Start Date End Date Melissa Sarabia MD [address] [place] [phone] PCP - General 05/24/22 documented as of this encounter
--- OUTSIDE RECORDS SUMMARY | 2025-01-20 17:21 | XMS_ITS | Clinical Summary ---
Author Organization Patient Business Ser [facility] Address [address] [place] [address] Care Team Providers Care Health Care Facility Administrator Name Role Phone Melissa Sarabia MD Primary [...] Diagnosed Date NSVT (nonsustained ventricul ar tachycardia) ([facility] V24, [facility] V28) 09/21/2024 Shortness of breath 09/21/2024 Abnormal Holter exam 06/30/2024 Overview (06/30/2024): VENTRICULAR TACHYCARDIA Morbid obesity with BMI of 4 0.0-44.9, adult ([facility] V24, [facility] V28) 03/02/2024 Vitamin D insufficiency 11/27/2023 Chronic [...] Encounters Date Type Department Care Team Description 01/19/2025 Results Follow-Up Adult Medicine [address] [phone] Shahana Urbina PA 01/18/2025 12:15 PM EST Lab Draw Station [address] Morbid obesity with BMI of 40.0-44.9, adult ([facility] V24, [facility] V28) (Primary Dx); Family history of combined hyperlipidemia; Seen in emergency department; Colitis; Rectal bleeding 01/18/2025 11:30 AM EST Office Visit Adult [address] [phone] Shahana Urbina PA Seen in emergency department (Primary Dx); Colitis; Rectal bleeding; Morbid obesity with BMI of 45.0-49.9, adult ([facility] V24, [facility] V28) 10/26/2024 Telephone Adult Medicine [address] [phone] Melissa Caldwell MD from Last 3 Months Immunizations Immunization [...] on antihypertensives after last delivery; d/c'd at appt. Vaginal discharge 08/07/2022 DX:Vaginal dis charge Hyperemesis gravidarum 05/24/2022 DX:Hypere mesis gravidarum; COMMENT: 06/12- B6 [facility] at [facility] Added Phenergan suppositories today Zofran PRN Family [...] care for your loved ones. For example, director child or elderly care for an older adult? [...] Mass Index 45.01 01/18/2025 11:36 AM EST Plan of Treatment Upcoming Encounters Date Type Department Care Team (Late st Contact Info) Description 05/20/2025 7:30 AM EST Office Visit Adult Medicine [facility] [address] [place], [place] [phone] Melissa Sarabia MD [address] [place], [place] 09/21/2025 10:00 AM EDT Ancillary Procedure [facility] [address] [facility] [address] [place] [address] Health Maintenance Due Date Last Done Comments Hepatitis B Vaccines (1 of 3 - 19+ 3-dose series) 2012 Pneumococcal Vaccine: Pediatrics (0 to 5 Years) and At-Risk Patients (6 to 49 Years) (1 of 2 - PCV) 2012 HIV Screening 02/24/2020 HPV Vaccines (1 - 3-dose SCDM series) 2020 Social Influencers of Health Screening 06/10/2025 06/10/2024 Cervical Cancer Screening: HPV 07/02/2025 07/02/2022 Hypertension/CHF/CAD Annual BMP Blood Test 07/28/2025 07/28/2024, 06/10/2024, 06/27/2022 Cholesterol Screening (Lipid Panel) 01/26/2026 01/26/2021 DTaP,Tdap,and Td Vaccines (6 - Td or Tdap) 10/22/2032 10/22/2022, 06/15/2020, 07/05/2019, Additional history exists RSV Immunization Adult Patients (1 - 1-dose 75+ series) 2068 Varicella Vaccines Aged Out 08/19/2020 No longer eligible based on patient's age to complete this topic Influenza Vaccine Discontinued 01/26/2021, , 12/21/2019, Additional history exists COVID-19 Vaccine Discontinued 02/23/2021, 02/02/2021 Hepatitis C Screening Completed 06/27/2022 Depression Screening Completed 01/18/2025, 11/27/19 24 HIB Vaccines Aged Out No longer eligi [...] Seen in emergency department Colitis Rectal bleeding CT ABDOMEN PELVIS W CONTRAST Routine 01/15/2025 2:15 PM EDT BASIC METABOLIC PANEL Routine 07/28/2024 9:47 AM EDT Ventricular tachycardia (CMS/HCC V24, CMS/HCC V28) DEPRESSION SCREENING Routine 11/27/2023 HPV Routine 07/02/2022 HEPATITIS C SCREENING Routine 06/27/2022 LIPID PANEL Routine 01/26/2021 from Last 3 Months or Most Recently Relevant to Health Maintenance Results * Culture urine (01/18/2025 12:20 PM EST) Culture, Urine 10,000-49,000 CFU/mL Mixed urogenital luz maria, no uropathogens present. Suggest repeat specimen if clinically indicated. 01/19/2025 11:16 AM EST [facility] Urine Urine specimen obtained by clean catch procedure / Unknown Non-blood Collection / Unknown 01/18/2025 12:20 PM EST 01/18/2025 12:20 PM EST Shahana JACKSON LAB MICROBIOLOGY - GENERAL KATY PIEDRA Final Result [facility] [address] [place] [address], [place] [phone] * CT Abdomen Pelvis w Contrast (01/15/2025 2:15 PM EDT) Anatomical Region Laterality Modality Body Computed Tomogra phy us Historical Provider MD JUNIOR CT PROCEDURES Final R esult * Basic metabolic panel (07/28/2024 9:47 AM EDT) Sodium 135 133 - 145 mmol/L LAB CHEMISTRY METHOD 07/28/2024 12:25 PM [facility] Potassium 4.7 3.5 - 5.5 mmol/L LAB CHEMISTRY METHOD 07/28/2024 12:25 PM [facility] Chloride 105 96 - 110 mmol/L LAB CHEMISTRY METHOD 07/28/2024 12:25 PM [facility] CO2 24 21 - 32 mmol/L LAB CHEMISTRY METHOD 07/28/2024 12:25 PM [facility] Anion Gap 6 3 - 11 LAB CHEMISTRY METHOD 07/28/2024 12:25 PM [facility] Glucose 87 70 - 100 mg/dL LAB CHEMISTRY METHOD 07/28/2024 12:25 PM [facility] BUN 14 5 - 25 mg/dL LAB CHEMISTRY METHOD 07/28/2024 12:25 PM [facility] Creatinine 0.68 0.50 - 1.10 mg/dL LAB CHEMISTRY METHOD 07/28/2024 12:25 PM [facility] eGFR 120 >=60 mL/min/1. 73m2 LAB CHEMISTRY METHOD 07/28/2024 12:25 PM [facility] Comment:Calculation based on the Chronic Kidney Disease Epidemiology Collaboration (CKD-EPI) equation refit without adjustment for race. BUN/Creatinine Ratio 20.6 LAB CHEMISTRY METHOD 07/28/2024 12:25 PM EDT [facility] Calcium 9.4 8.5 - 10.5 mg/dL LAB CHEMISTRY METHOD 07/28/2024 12:25 PM EDT [facility] Blood Venous blood specimen / Unknown Venipuncture / Unknown 07/28/2024 9:47 AM EDT 07/28/2024 9:47 AM EDT Jose Ly MD LAB BLOOD ORDERABLES Final Res ult [facility] [address] [place] [address], [place] [phone] * Depression Screening (11/27/2023) [facility] Depression Screening abstracted [facility] Provider HEALTH MAINTENANCE Final Result * Cervical Cancer Screening: HPV (07/02/2022) [facility] Cervical Cancer Screening: HPV No Interpretation , Abstracted Result [facility] Provider HEALTH MAINTENANCE Final Result * Hepatitis C Screening (06/27/2022) [facility] Hepatitis C Screening abstracted Result [facility] Provider HEALTH MAINTENANCE Final Result * (ABNORMAL) Lipid panel (01/26/2021) [facility] LDL/HDL Ratio 3 0 - 4 Triglycerides 98 0 - 150 mg/dL Cholesterol 203(A) 0 - 200 mg/dL HDL 64 >=40 mg/dL LDL Cholesterol 120(A) 0 - 100 mg/dL Blood Venous blood specimen / Unknown [facility] Provider LAB BLOOD ORDERABLES Christine l Result from Last 3 Months or Most Recently Relevant to Health Maintenance Insurance [facility] [employer] Care Teams Health Care Facility Administrator Relationship Specialty Start Date End Date Melissa Sarabia MD [address] [place] [phone] PCP - General 05/24/22
[2025-01-20 17:57] LABS: Appearance Urine Clear; Glucose Urine UA Negative (Negative); PH 6.0 (5.0-9.0); Specific Gravity - Urine 1.015 (1.005-1.025)
[2025-01-20 19:15] VITALS: BP 116/80; PULSE 62; RESP 16; TEMP 36.6; O2SAT 99
== END 2025-01-20 19:15 | disposition home or self-care (01) ==
PROVIDERS: Physician Assistant Medical; Emergency Provider Emergency Medicine; PCP Internal Medicine
DX: K52.9 Noninfective gastroenteritis and colitis, unspecified (principal); R10.30 Lower abdominal pain, unspecified
CPT/HCPCS: 36415; 80053; 81003; 83735; 85025; 99283